=== PATIENT | male | born 1985 | race Caucasian/White ===

== ENCOUNTER 2016-12-08 05:54 | Inpatient (IN) | payer BC ==
[~2016-12-08] VITALS: Ht 185.4 cm; Wt 109.1 kg
[2016-12-08] VITALS (9 sets, daily range): BP systolic 129–158; BP diastolic 71–99; PULSE 74–89; RESP 16–20; TEMP 98–100; O2SAT 95–99
[2016-12-08] MEDS ORDERED: SODIUM CHLOR 0.9% 1000 ML INJ 1,000 ML IV SCH (06:13)
[2016-12-08 06:15] LABS: MEAN CORPUSCULAR HGB CONC 36.9 % (32.0-36.0)
[2016-12-08] MEDS ORDERED: HYDROmorphone HCL PF 1 MG/ML VIAL IVS ONE (06:15)
[2016-12-08] MEDS ORDERED: ONDANSETRON HCL 4 MG/2 ML VIAL IVP ONE (06:15)
[2016-12-08] MEDS ORDERED: LIDOCAINE VISCOUS 2% SOLN 15 ML UDC PO ONE (06:15)
[2016-12-08] MEDS ORDERED: DIATRIZOATE MEGLUM/DIATRIZOATE SOD 9 ML CUP ONE (06:30)
--- NOTE | 2016-12-08 06:41 | PD ---
HPI Chief Complaint: Chest Pain Time Seen by Provider: 06:13 Travel History International Travel<30 days: No Contact w/Intl Traveler<30days: No Traveled to known affect area: No History of Present Illness HPI The patient is 31 years old. Last night while watching the [employer] he ate a couple microwaved dinners. This morning he woke up with epigastric abdominal pain, quite severe. It's constant. He reports a gas-like pain throughout the abdomen. He reports one bowel movement. He denies flatus. Nausea present without vomiting. No fever. No sick contacts. No dyspnea. PFSH Past Medical History Anxiety: Yes Cerebrovascular Accident: No Diabetes: No Respiratory: Yes (ASTHMA) Immunizations Current: Yes Myocardial Infarction: No Past Surgical History Tonsillectomy: Yes Social History Alcohol Use: Yes Tobacco Use: No (quit) Substance Use: No Allergies-Medications (Allergen,Severity, Reaction): Coded Allergies: No Known Allergies (Verified , 12/08/16) Reported Meds & Prescriptions Reported Meds & Active Scripts Active No Active Prescriptions or Reported Medications Review of Systems Except as stated in HPI: all other systems reviewed are Neg Physical Exam Narrative GENERAL: 31 yo M, moderate distress, WNWD SKIN: Diaphoresis. Intact. HEAD: Atraumatic. Normocephalic. EYES: Pupils equal and round. No scleral icterus. No injection or drainage. ENT: No nasal bleeding or discharge. Mucous membranes pink and moist. NECK: Trachea midline. No JVD. CARDIOVASCULAR: Regular rate and rhythm. RESPIRATORY: No accessory muscle use. Clear to auscultation. Breath sounds equal bilaterally. GASTROINTESTINAL: TTP epigastrium. Soft. MUSCULOSKELETAL: Extremities without clubbing, cyanosis, or edema. No obvious deformities. NEUROLOGICAL: Awake and alert. No obvious cranial nerve deficits. Motor grossly within normal limits. Five out of 5 muscle strength in the arms and legs. Normal speech. PSYCHIATRIC: Appropriate mood and affect; insight and judgment normal. Data Data Last Documented VS Vital Signs Date Time Temp Pulse Resp B/P Pulse Ox O2 Delivery O2 Flow Rate FiO2 12/08/16 06:17 77 16 95 Room Air 12/08/16 05:55 98.0 143/88 VS reviewed Orders Complete Blood Count With Diff (12/08/16 06:13) Comprehensive Metabolic Panel (12/08/16 06:13) Lipase (12/08/16 06:13) Lactic Acid (12/08/16 06:13) Ct Abd/Pel W Iv Contrast(Rout) (12/08/16 06:13) Iv Access Insert/Monitor (12/08/16 06:13) Ecg Monitoring (12/08/16 06:13) Oximetry (12/08/16 06:13) Ondansetron Inj (Zofran Inj) (12/08/16 06:15) Sodium Chlor 0.9% 1000 Ml Inj (Ns 1000 M (12/08/16 06:13) Sodium Chloride 0.9% Flush (Ns Flush) (12/08/16 06:15) Hydromorphone Pf Inj (Dilaudid Pf Inj) (12/08/16 06:15) Lidocaine 2% Viscous (Xylocaine 2% Visco (12/08/16 06:15) Oral Contrast - Adult (12/08/16 06:17) Diatrizoate Liq ( Gastroview Liq) (12/08/16 06:30) MDM Medical Decision Making Medical Screen Exam Complete: Yes Emergency Medical Condition: Yes Medical Record Reviewed: Yes Differential Diagnosis Constipation, Gastritis, Acute Cholecystitis, Biliary Colic, Pancreatitis, SALINAS , Hepatitis, Bowel Obstruction, Cystitis, Mesenteric Ischemia, AAA, Appendicitis , Renal Stone/Hydronephrosis, GERD, perforated viscous Narrative Course Oncoming provider going to follow up blood work and imaging. GI cocktail, IVF 1L NS, zofran and dilaudid given upon arrival. Scripts No Active Prescriptions or Reported Meds Jaime Rehman MD Dec 08, 2016 06:41
[2016-12-08 06:43] LABS: AUTOMATED NEUTROPHIL # 5.8 TH/MM3 (1.8-7.7); BASOPHIL # 0.1 TH/MM3 (0-0.2); BASOPHIL % 0.8 % (0.0-2.0); EOSINOPHIL # 0.2 TH/MM3 (0-0.4); EOSINOPHIL % 2.2 % (0.0-4.0); HEMATOCRIT 43.1 % (39.0-51.0); LYMPH % 28.7 % (9.0-44.0); LYMPHOCYTE # 2.9 TH/MM3 (1.0-4.8); MEAN CELL VOLUME 86.7 FL (80.0-100.0); MONO % 10.3 % (0.0-8.0); PLATELET COUNT 273 TH/MM3 (150-450); RED BLOOD COUNT 4.97 MIL/MM3 (4.50-5.90)
[2016-12-08 06:49] LABS: HEMO FLAGS AUTO DIFF
[2016-12-08] MEDS ORDERED: HYDROmorphone HCL PF 1 MG/ML VIAL IV PUSH ONE ×3 (07:00→12:45)
[2016-12-08] MEDS ORDERED: PROMETHAZINE INJ 25 MG/ML VIAL IM ONE (07:00)
[2016-12-08 07:02] LABS: ALT (GPT) 119 U/L (12-78); ANION GAP 13 MEQ/L (5-15); AST (GOT) 109 U/L (15-37); BICARBONATE 26.1 MEQ/L (21.0-32.0); BLOOD UREA NITROGEN 9 MG/DL (7-18); CHLORIDE 99 MEQ/L (98-107); GLOMERULAR FILTRATION RATE 85 ML/MIN (>89); POTASSIUM 3.4 MEQ/L (3.5-5.1); SODIUM (NA) 138 MEQ/L (136-145)
[2016-12-08 07:04] LABS: ALKALINE PHOSPHATASE 106 U/L (45-117); TOTAL BILIRUBIN ADULT 0.6 MG/DL (0.2-1.0)
[2016-12-08 07:38] LABS: SCAN/DIFF AUTO DIFF CONFIRMED
[2016-12-08] MEDS ORDERED: IOHEXOL 350 MG/ML 10 ML VIAL (for RAD DIAG) IV ONE (08:17)
--- NOTE | 2016-12-08 09:12 | RADRPT ---
EXAM DATE/TIME: 12/08/2016 08:08 [place] COMPARISON: No previous studies available for comparison. INDICATIONS: Medial abdominal pain and sweating. IV CONTRAST: 85 cc Omnipaque 350 (iohexol) IV ORAL CONTRAST: Prescribed oral contrast ingested. RADIATION DOSE: 10.29 CTDIvol (mGy) MEDICAL HISTORY: None SURGICAL HISTORY: Tonsillectomy. ENCOUNTER: Initial ACUITY: 1 day PAIN SCALE: 6/10 LOCATION: Medial abdomen TECHNIQUE: Volumetric scanning of the abdomen and pelvis was performed. Using automated exposure control and ad justment of the mA and/or kV according to patient size, radiation dose was kept as low as reasonably achievable to obtain optimal diagnostic quality images. FINDINGS: Lung bases are clear. There is mild fatty replacement to the liver. Spleen is unremarkable. There is peripancreatic induration with fluid in the lesser sac and induration in the mesentery all s uspicious for acute pancreatitis. There is symmetrical renal function. Gallstones are not identified. Common duct is normal. There is no intrahepatic ductal dilatation. Pelvic contents unremarkable. CONCLUSION: 1. Findings could be consistent with acute pancreatitis by CT scan. 2. There is no intrahepatic biliary duct dilatation. There is no gallstones. Brandan Dia MD FACR on December 08, 2016 at 8:51 Board Certified Radiologist. This report was verified electronically.
--- NOTE | 2016-12-08 09:20 | PD ---
Physical Exam Date Seen by Provider: Dec 08, 2016 Time Seen by Provider: 07:00 Narrative Patient seen and initially evaluated by Dr. Rehman, signed out to me at 7 AM awaiting lab work and CAT scan. Patient is requiring several doses of pain medication while in the ER. Vital signs are stable. Laboratory Tests Test 12/08/16 06:20 Mean Corpuscular Hemoglobin 36.9 % Concent (32.0-36.0) Monocytes (%) (Auto) 10.3 % (0.0-8.0) Monocytes # (Auto) 1.0 TH/MM3 (0-0.9) Potassium Level 3.4 MEQ/L (3.5-5.1) Estimat Glomerular Filtration 85 ML/MIN (>89) Rate Random Glucose 145 MG/DL (74-106) Lactic Acid Level 2.1 mmol/L (0.4-2.0) Aspartate Amino Transf 109 U/L (15-37) (AST/SGOT) Alanine Aminotransferase 119 U/L (12-78) (ALT/SGPT) Lipase 2340 U/L (73-393) Lab work indicative of pancreatitis. CT was discussed with Dr. Dia, who states that it looked like the patient has significant pancreatitis. Patient had received IV fluids in the ER, anti-medics, and several doses of pain medications. Vital signs are stable in the ER. And at this point, my plan would be to admit the patient for further treatment of pancreatitis. The case was discussed with Dr. Graham for admission. Data Data Last Documented VS Vital Signs Date Time Temp Pulse Resp B/P Pulse Ox O2 Delivery O2 Flow Rate FiO2 12/08/16 06:17 77 16 95 Room Air 12/08/16 05:55 98.0 143/88 Orders Complete Blood Count With Diff (12/08/16 06:13) Comprehensive Metabolic Panel (12/08/16 06:13) Lipase (12/08/16 06:13) Lactic Acid (12/08/16 06:13) Ct Abd/Pel W Iv Contrast(Rout) (12/08/16 06:13) Iv Access Insert/Monitor (12/08/16 06:13) Ecg Monitoring (12/08/16 06:13) Oximetry (12/08/16 06:13) Ondansetron Inj (Zofran Inj) (12/08/16 06:15) Sodium Chlor 0.9% 1000 Ml Inj (Ns 1000 M (12/08/16 06:13) Sodium Chloride 0.9% Flush (Ns Flush) (12/08/16 06:15) Hydromorphone Pf Inj (Dilaudid Pf Inj) (12/08/16 06:15) Lidocaine 2% Viscous (Xylocaine 2% Visco (12/08/16 06:15) Oral Contrast - Adult (12/08/16 06:17) Diatrizoate Liq ( Gastroview Liq) (12/08/16 06:30) Promethazine Inj (Phenergan Inj) (12/08/16 07:00) Hydromorphone Pf Inj (Dilaudid Pf Inj) (12/08/16 07:00) Hydromorphone Pf Inj (Dilaudid Pf Inj) (12/08/16 08:00) Iohexol 350 Inj (Omnipaque 350 Inj) (12/08/16 08:17) Labs Laboratory Tests Test 12/08/16 06:20 White Blood Count 10.0 TH/MM3 Red Blood Count 4.97 MIL/MM3 Hemoglobin 15.9 GM/DL Hematocrit 43.1 % Mean Corpuscular Volume 86.7 FL Mean Corpuscular Hemoglobin 32.0 PG Mean Corpuscular Hemoglobin 36.9 % Concent Red Cell Distribution Width 13.0 % Platelet Count 273 TH/MM3 Mean Platelet Volume 7.4 FL Neutrophils (%) (Auto) 58.0 % Lymphocytes (%) (Auto) 28.7 % Monocytes (%) (Auto) 10.3 % Eosinophils (%) (Auto) 2.2 % Basophils (%) (Auto) 0.8 % Neutrophils # (Auto) 5.8 TH/MM3 Lymphocytes # (Auto) 2.9 TH/MM3 Monocytes # (Auto) 1.0 TH/MM3 Eosinophils # (Auto) 0.2 TH/MM3 Basophils # (Auto) 0.1 TH/MM3 CBC Comment AUTO DIFF Differential Comment AUTO DIFF CONFIRMED Sodium Level 138 MEQ/L Potassium Level 3.4 MEQ/L Chloride Level 99 MEQ/L Carbon Dioxide Level 26.1 MEQ/L Anion Gap 13 MEQ/L Blood Urea Nitrogen 9 MG/DL Creatinine 1.03 MG/DL Estimat Glomerular Filtration 85 ML/MIN Rate Random Glucose 145 MG/DL Lactic Acid Level 2.1 mmol/L Calcium Level 10.0 MG/DL Total Bilirubin 0.6 MG/DL Aspartate Amino Transf 109 U/L (AST/SGOT) Alanine Aminotransferase 119 U/L (ALT/SGPT) Alkaline Phosphatase 106 U/L Total Protein 7.6 GM/DL Albumin 4.4 GM/DL Lipase 2340 U/L [facility] Medical Record Reviewed: Yes Supervised Visit with NEGRO: No Diagnosis Primary Impression: ALCOHOL INDUCED ACUTE PANCREATITIS WITHOUT NECROSIS OR INFCT Admitting Information Admitting Physician Requests: Admit Scripts No Active Prescriptions or Reported Meds Tyler Gaona MD Dec 08, 2016 09:20
[2016-12-08] MEDS ORDERED: HYDROmorphone HCL PF 1 MG/ML VIAL IV PUSH PRN (09:30)
[2016-12-08] MEDS ORDERED: ACETAMINOPHEN 325 MG TAB PO PRN (09:30)
[2016-12-08] MEDS: NS + KCL 20 MEQ INJ 1,000 ML IV SCH ×3 (11:02→23:12)
[2016-12-08] MEDS: PANTOPRAZOLE SODIUM 40 MG VIAL IV PUSH SCH (11:03)
--- NOTE | 2016-12-08 12:49 | HHI.HP ---
[facility] Primary Care Physician No Primary Care Physician Admission Diagnosis acute pancreatitis Diagnoses: (1) Acute pancreatitis Diagnosis: Principal Chief Complaint: abdominal pain Travel History International Travel<30 Days: No Contact w/Intl Traveler <30 Da: No Traveled to Known Affected Are: No History of Present Illness patient is a 31 y/o male with no significant past medical history , with history of alcohol abuse, presented to ER with abdominal pain. he says that the pain started last night after he drank alcohol. pain was severe in intensity with some radiation to the back. pain was associated with nausea and vomiting. he denies any fever. he doesn't recall any history of this abdominal pain in the past. Review of Systems Constitutional: DENIES: Fever, Weight loss, Chills, Night Sweats Eyes: DENIES: Blurred vision, Diplopia, Vision loss, Double Vision Ears, nose, mouth, throat: DENIES: Tinnitus, Vertigo, Throat pain, Epistaxis Respiratory: DENIES: Apneas, Cough, Snoring, Wheezing, Hemoptysis, Sputum production, Shortness of breath Cardiovascular: DENIES: Chest pain, Palpitations, Syncope, Dyspnea on Exertion , PND, Lower Extremity Edema, Orthopnea, Claudication Gastrointestinal: COMPLAINS OF: Abdominal pain, Nausea, Vomiting, DENIES: Black stools, Bloody stools, Constipation, Diarrhea, Difficulty Swallowing, Anorexia Genitourinary: DENIES: Urinary frequency, Urgency, Hematuria, Dysuria Musculoskeletal: DENIES: Joint pain, Muscle aches, Stiffness, Joint Swelling Integumentary: DENIES: Rash Neurologic: DENIES: Abnormal gait, Headache, Localized weakness, Paresthesias, Seizures, Speech Problems, Tremor, Poor Balance Psychiatric: DENIES: Anxiety, Confusion, Mood changes, Depression, Hallucinations, Agitation, Suicidal Ideation, Homicidal Ideation, Delusions Past Family Social History Past Medical History not significant. Past Surgical History tonsillectomy. Reported Medications none reported. Allergies: Coded Allergies: No Known Allergies (Verified , 12/08/16) Active Ordered Medications Current Medications Ondansetron HCl 4 mg 4 mg ONCE ONCE IVP Last administered on 12/08/16 06:27; Start 12/08/16 at 06:15; Stop 12/08/16 at 06:16; Status DC Sodium Chloride (NS 1000 ml Inj) 1,000 ml @ 1,000 mls/hr Q1H IV Last administered on 12/08/16 06:19; Start 12/08/16 at 06:13; Stop 12/08/16 at 07:12; Status DC IV Flush (NS Flush) 2 ml UNSCH PRN IVF FLUSH AFTER USING IV ACCESS; Start at 06:15 Hydromorphone HCl (Dilaudid Pf Inj) 1 mg ONCE ONCE IVS Last administered on 06:27; Start 12/08/16 at 06:15; Stop 12/08/16 at 06:16; Status DC Lidocaine HCl (Xylocaine 2% Viscous) 15 ml ONCE ONCE PO Last administered on 06:27; Start 12/08/16 at 06:15; Stop 12/08/16 at 06:16; Status DC Diatrizoate Meglum/ Diatrizoate Sod ( Gastroview Liq) 18 ml STK-MED ONCE .ROUTE Last administered on 12/08/16 06:31; Start 12/08/16 at 06:30; Stop at 06:31; Status DC Promethazine HCl (Phenergan Inj) 25 mg ONCE ONCE IM Last administered on 07:08; Start 12/08/16 at 07:00; Stop 12/08/16 at 07:01; Status DC Hydromorphone HCl (Dilaudid Pf Inj) 0.5 mg ONCE ONCE IV PUSH Last administered on 12/08/16 07:08; Start 12/08/16 at 07:00; Stop 12/08/16 at 07:01; Status DC Hydromorphone HCl (Dilaudid Pf Inj) 1 mg ONCE ONCE IV PUSH Last administered on 12/08/16 08:06; Start 12/08/16 at 08:00; Stop 12/08/16 at 08:01; Status DC Iohexol (Omnipaque 350 Inj) 85 ml STK-MED ONCE IV Last administered on 08:17; Start 12/08/16 at 08:17; Stop 12/08/16 at 08:18; Status DC Ondansetron HCl (Zofran Inj) 4 mg Q8H PRN IV PUSH NAUSEA; Start 12/08/16 at 09: 30 Acetaminophen (Tylenol) 650 mg Q4H PRN PO FEVER; Start 12/08/16 at 09:30 Pantoprazole Sodium (Protonix Inj) 40 mg Q24H IV PUSH Last administered on 11:03; Start 12/08/16 at 10:00 Hydromorphone HCl 1 mg 1 mg Q4H PRN IV PUSH PAIN Last administered on 12/08/16 12:25; Start 12/08/16 at 09:30 Potassium Chloride/Sodium Chloride (NS + KCl 20 Meq Inj) 1,000 ml @ 125 mls/hr Q8H IV Last administered on 12/08/16 11:02; Start 12/08/16 at 09:45 Family History breast cancer in mother. Social History quit smoking three weeks ago. drinks five days a week. Physical Exam Vital Signs Vital Signs Date Time Temp Pulse Resp B/P Pulse Ox O2 Delivery O2 Flow Rate FiO2 12/08/16 08:36 18 12/08/16 07:38 16 12/08/16 07:00 18 12/08/16 06:17 77 16 95 Room Air 12/08/16 06:09 77 16 98 Room Air 12/08/16 05:55 98.0 80 20 143/88 96 Physical Exam GENERAL: This is a well-nourished, well-developed patient, in no apparent distress. SKIN: No rashes, ecchymoses or lesions. Cool and dry. HEAD: Atraumatic. Normocephalic. No temporal or scalp tenderness. EYES: Pupils equal round and reactive. Extraocular motions intact. No scleral icterus. No injection or drainage. ENT: Nose without bleeding, purulent drainage or septal hematoma. Throat without erythema, tonsillar hypertrophy or exudate. Uvula midline. Airway patent. NECK: Trachea midline. No JVD or lymphadenopathy. Supple, nontender, no meningeal signs. CARDIOVASCULAR: Regular rate and rhythm without murmurs, gallops, or rubs. RESPIRATORY: Clear to auscultation. Breath sounds equal bilaterally. No wheezes , rales, or rhonchi. GASTROINTESTINAL: Abdomen soft,with generalized tenderness, nondistended. No hepato-splenomegaly, or palpable masses. No guarding. MUSCULOSKELETAL: Extremities without clubbing, cyanosis, or edema. No joint tenderness, effusion, or edema noted. No calf tenderness. Negative Homans sign bilaterally. NEUROLOGICAL: Awake and alert. Cranial nerves II through XII intact. Motor and sensory grossly within normal limits. Five out of 5 muscle strength in all muscle groups. Normal speech. Laboratory Laboratory Tests Test 12/08/16 06:20 White Blood Count 10.0 Red Blood Count 4.97 Hemoglobin 15.9 Hematocrit 43.1 Mean Corpuscular Volume 86.7 Mean Corpuscular Hemoglobin 32.0 Mean Corpuscular Hemoglobin 36.9 Concent Red Cell Distribution Width 13.0 Platelet Count 273 Mean Platelet Volume 7.4 Neutrophils (%) (Auto) 58.0 Lymphocytes (%) (Auto) 28.7 Monocytes (%) (Auto) 10.3 Eosinophils (%) (Auto) 2.2 Basophils (%) (Auto) 0.8 Neutrophils # (Auto) 5.8 Lymphocytes # (Auto) 2.9 Monocytes # (Auto) 1.0 Eosinophils # (Auto) 0.2 Basophils # (Auto) 0.1 CBC Comment AUTO DIFF Differential Comment AUTO DIFF CONFIRMED Sodium Level 138 Potassium Level 3.4 Chloride Level 99 Carbon Dioxide Level 26.1 Anion Gap 13 Blood Urea Nitrogen 9 Creatinine 1.03 Estimat Glomerular Filtration 85 Rate Random Glucose 145 Lactic Acid Level 2.1 Calcium Level 10.0 Total Bilirubin 0.6 Aspartate Amino Transf 109 (AST/SGOT) Alanine Aminotransferase 119 (ALT/SGPT) Alkaline Phosphatase 106 Total Protein 7.6 Albumin 4.4 Lipase 2340 Result Diagram: 12/08/1661912/08/[address] of the abdomen with acute pancreatitis. Assessment and Plan Assessment and Plan A/P - acute pancreatitis- alcohol-induced NPO for now- start IV fluid- pain control and antiemetics as needed check the lipase in am -alcohol abuse; counselled on drinking cessation- start Thiamine- ativan as needed -elevated LFT's due to alcohol- will monitor Discussed Condition With ER physician and the patient. Physician Certification 2 Midnight Certification Type: Admission for Inpatient Services Order for Inpatient Services The services are ordered in accordance with Medicare regulations or non- Medicare payer requirements, as applicable. In the case of services not specified as inpatient-only, they are appropriately provided as inpatient services in accordance with the 2-midnight benchmark. Estimated LOS (days): 2 days is the estimated time the patient will need to remain in the hospital, assuming treatment plan goals are met and no additional complications. Post-Hospital Plan: Home Problem Qualifiers (1) Acute pancreatitis: Deion Broussard MD Dec 08, 2016 12:49
[2016-12-08] MEDS: ONDANSETRON HCL 4 MG/2 ML VIAL IV PUSH PRN (16:44)
[2016-12-08] MEDS: HYDROmorphone HCL PF 1 MG/ML VIAL IV PUSH PRN ×3 (16:44→23:10)
[2016-12-08] MEDS: SODIUM CHLORIDE 0.9% FLUSH 5 ML FLUSH IVF PRN ×2 (19:50→21:43)
[2016-12-08] MEDS ORDERED: MORPHINE SULFATE 4 MG/ML INJ IV PUSH ONE (21:15)
[2016-12-09] VITALS: BP 167/81; PULSE 92; RESP 18; TEMP 99.2; O2SAT 95
[2016-12-09] MEDS: ONDANSETRON HCL 4 MG/2 ML VIAL IV PUSH PRN (00:50)
[2016-12-09] MEDS: HYDROmorphone HCL PF 1 MG/ML VIAL IV PUSH PRN ×8 (01:52→23:21)
[2016-12-09 04:00] VITALS: BP 168/100; PULSE 102; RESP 18; TEMP 98.9; O2SAT 92
[2016-12-09 06:59] LABS: ALKALINE PHOSPHATASE 80 U/L (45-117); ALT (GPT) 74 U/L (12-78); ANION GAP 10 MEQ/L (5-15); AST (GOT) 46 U/L (15-37); BICARBONATE 24.3 MEQ/L (21.0-32.0); BLOOD UREA NITROGEN 15 MG/DL (7-18); CHLORIDE 101 MEQ/L (98-107); GLOMERULAR FILTRATION RATE 94 ML/MIN (>89); POTASSIUM 4.3 MEQ/L (3.5-5.1); SODIUM (NA) 135 MEQ/L (136-145); TOTAL BILIRUBIN ADULT 0.8 MG/DL (0.2-1.0)
[2016-12-09 08:01] VITALS: BP 156/94; PULSE 112; RESP 24; TEMP 98.6; O2SAT 95
[2016-12-09] MEDS: NS + KCL 20 MEQ INJ 1,000 ML IV SCH ×2 (08:08→15:29)
--- NOTE | 2016-12-09 11:04 | HHI.PR ---
Subjective Remarks overall looks more comfortable. abdominal pain has improved. had low grade fever last night. no nausea or vomiting. Objective Vitals Vital Signs Date Time Temp Pulse Resp B/P Pulse Ox O2 Delivery O2 Flow Rate FiO2 12/09/16 08:01 98.6 112 24 156/94 95 12/09/16 04:00 98.9 102 18 168/100 92 12/09/16 00:00 99.2 92 18 167/81 95 12/09/16 00:00 Room Air 12/08/16 21:19 100.0 89 20 158/99 95 12/08/16 21:19 Room Air 12/08/16 21:12 80 24 141/80 100 12/08/16 19:49 84 20 141/80 96 Room Air 12/08/16 17:20 74 16 129/75 98 12/08/16 17:16 16 12/08/16 14:10 75 18 139/71 99 Room Air 12/08/16 13:14 16 12/08/16 11:15 74 18 137/72 99 Room Air I/O 12/08/16 12/08/16 12/08/16 12/09/16 12/09/16 12/09/16 07:00 15:00 23:00 07:00 15:00 23:00 Intake Total 0 ml 0 ml Output Total 175 ml Balance 0 ml -175 ml Intake Oral 0 ml 0 ml Output Urine Total 175 ml # Voids 1 2 # Bowel Movements 2 0 Result Diagram: 12/08/16 0620 12/09/16 0550 Imaging Last Impressions Abdomen/Pelvis CT 12/08/16 0613 Signed Impressions: Service Date/Time: Thursday, December 08, 2016 08:08 - CONCLUSION: 1. Findings could be consistent with acute pancreatitis by CT scan. 2. There is no intrahepatic biliary duct dilatation. There is no gallstones. Brandan Dia MD FACR Objective Remarks GENERAL: This is a well-nourished, well-developed patient, in no apparent distress. CARDIOVASCULAR: Regular rate and regular rhythm without murmurs, gallops, or rubs. RESPIRATORY: Clear to auscultation. Breath sounds equal bilaterally. No wheezes , rales, or rhonchi. GASTROINTESTINAL: Abdomen soft, abdominal tenderness is better, nondistended. Normal, active bowel sounds MUSCULOSKELETAL: Extremities without clubbing, cyanosis, or edema. NEURO: Alert & Oriented x4 to person, place, time, situation. Moves all ext x4 Procedures none Medications and IVs Current Medications Ondansetron HCl 4 mg 4 mg ONCE ONCE IVP Last administered on 12/08/16 06:27; Start 12/08/16 at 06:15; Stop 12/08/16 at 06:16; Status DC Sodium Chloride (NS 1000 ml Inj) 1,000 ml @ 1,000 mls/hr Q1H IV Last administered on 12/08/16 06:19; Start 12/08/16 at 06:13; Stop 12/08/16 at 07:12; Status DC IV Flush (NS Flush) 2 ml UNSCH PRN IVF FLUSH AFTER USING IV ACCESS Last administered on 12/08/16 21:43; Start 12/08/16 at 06:15 Hydromorphone HCl (Dilaudid Pf Inj) 1 mg ONCE ONCE IVS Last administered on 06:27; Start 12/08/16 at 06:15; Stop 12/08/16 at 06:16; Status DC Lidocaine HCl (Xylocaine 2% Viscous) 15 ml ONCE ONCE PO Last administered on 06:27; Start 12/08/16 at 06:15; Stop 12/08/16 at 06:16; Status DC Diatrizoate Meglum/ Diatrizoate Sod ( Gastroview Liq) 18 ml STK-MED ONCE .ROUTE Last administered on 12/08/16 06:31; Start 12/08/16 at 06:30; Stop at 06:31; Status DC Promethazine HCl (Phenergan Inj) 25 mg ONCE ONCE IM Last administered on 07:08; Start 12/08/16 at 07:00; Stop 12/08/16 at 07:01; Status DC Hydromorphone HCl (Dilaudid Pf Inj) 0.5 mg ONCE ONCE IV PUSH Last administered on 12/08/16 07:08; Start 12/08/16 at 07:00; Stop 12/08/16 at 07:01; Status DC Hydromorphone HCl (Dilaudid Pf Inj) 1 mg ONCE ONCE IV PUSH Last administered on 12/08/16 08:06; Start 12/08/16 at 08:00; Stop 12/08/16 at 08:01; Status DC Iohexol (Omnipaque 350 Inj) 85 ml STK-MED ONCE IV Last administered on 08:17; Start 12/08/16 at 08:17; Stop 12/08/16 at 08:18; Status DC Ondansetron HCl (Zofran Inj) 4 mg Q8H PRN IV PUSH NAUSEA Last administered on 00:50; Start 12/08/16 at 09:30 Acetaminophen (Tylenol) 650 mg Q4H PRN PO FEVER; Start 12/08/16 at 09:30 Pantoprazole Sodium (Protonix Inj) 40 mg Q24H IV PUSH Last administered on 11:03; Start 12/08/16 at 10:00 Hydromorphone HCl 1 mg 1 mg Q4H PRN IV PUSH PAIN Last administered on 12/08/16 12:25; Start 12/08/16 at 09:30; Stop 12/08/16 at 15:00; Status DC Potassium Chloride/Sodium Chloride (NS + KCl 20 Meq Inj) 1,000 ml @ 125 mls/hr Q8H IV Last administered on 12/09/16 08:08; Start 12/08/16 at 09:45 Hydromorphone HCl (Dilaudid Pf Inj) 1 mg Q3HR PRN IV PUSH PAIN Last administered on 12/09/16 08:09; Start 12/08/16 at 15:00 Hydromorphone HCl (Dilaudid Pf Inj) 0.5 mg ONCE ONCE IV PUSH Last administered on 12/08/16 13:17; Start 12/08/16 at 12:45; Stop 12/08/16 at 12:46; Status DC Morphine Sulfate (Morphine Inj) 4 mg ONCE ONCE IV PUSH Last administered on 21:43; Start 12/08/16 at 21:15; Stop 12/08/16 at 21:21; Status DC A/P Assessment and Plan - acute pancreatitis- alcohol-induced NPO for now- continue IV fluid- pain control and antiemetics as needed check the lipase in am- will advance the diet in am if pain continues to improve. -alcohol abuse; counselled on drinking cessation- start Thiamine- ativan as needed -elevated LFT's due to alcohol- improving- will monitor Deion Broussard MD Dec 09, 2016 11:04
[2016-12-09] MEDS ORDERED: LORazepam 2 MG/ML VIAL IV PUSH PRN (11:15)
[2016-12-09] MEDS: PANTOPRAZOLE SODIUM 40 MG VIAL IV PUSH SCH (11:20)
[2016-12-09 12:01] VITALS: BP 155/93; PULSE 99; RESP 22; TEMP 98.1; O2SAT 95
[2016-12-09] MEDS: THIAMINE INJ 100 MG in SODIUM CHLORIDE 0.9% INJ 100 ML IV SCH (15:28)
[2016-12-09 16:01] VITALS: BP 133/79; PULSE 99; RESP 22; TEMP 97.9; O2SAT 96
[2016-12-09 20:00] VITALS: BP 126/87; PULSE 106; RESP 18; TEMP 99.8; O2SAT 94
[2016-12-10] VITALS (7 sets, daily range): BP systolic 106–166; BP diastolic 66–88; PULSE 94–115; RESP 16–20; TEMP 98.1–99.4; O2SAT 92–95
[2016-12-10] MEDS: NS + KCL 20 MEQ INJ 1,000 ML IV SCH ×2 (01:03→08:26)
[2016-12-10] MEDS: HYDROmorphone HCL PF 1 MG/ML VIAL IV PUSH PRN ×4 (02:15→11:12)
[2016-12-10] MEDS: THIAMINE INJ 100 MG in SODIUM CHLORIDE 0.9% INJ 100 ML IV SCH (08:14)
[2016-12-10] MEDS: PANTOPRAZOLE SODIUM 40 MG VIAL IV PUSH SCH (08:26)
--- NOTE | 2016-12-10 11:18 | HHI.PR ---
Subjective Remarks abdominal pain is better. no fever. no nausea or vomiting. wants to try some liquids today. d/w the RN. Objective Vitals Vital Signs Date Time Temp Pulse Resp B/P Pulse Ox O2 Delivery O2 Flow Rate FiO2 12/10/16 08:01 98.1 115 20 162/88 92 12/10/16 04:00 98.1 99 18 106/67 95 12/10/16 00:00 98.4 114 18 139/66 92 12/09/16 20:35 Room Air 12/09/16 20:00 99.8 106 18 126/87 94 12/09/16 16:01 97.9 99 22 133/79 96 12/09/16 14:44 20 12/09/16 12:01 98.1 99 22 155/93 95 I/O 12/09/16 12/09/16 12/09/16 12/10/16 12/10/16 12/10/16 07:00 15:00 23:00 07:00 15:00 23:00 Intake Total 0 ml 0 ml 0 ml 0 ml Output Total 175 ml 300 ml 200 ml Balance -175 ml -300 ml 0 ml -200 ml Intake Oral 0 ml 0 ml 0 ml 0 ml Output Urine Total 175 ml 300 ml 200 ml # Voids 3 2 # Bowel Movements 0 0 1 1 Result Diagram: 12/08/16 0620 12/09/16 0550 Imaging Last Impressions Abdomen/Pelvis CT 12/08/16 0613 Signed Impressions: Service Date/Time: Thursday, December 08, 2016 08:08 - CONCLUSION: 1. Findings could be consistent with acute pancreatitis by CT scan. 2. There is no intrahepatic biliary duct dilatation. There is no gallstones. Brandan Dia MD FACR Objective Remarks GENERAL: This is a well-nourished, well-developed patient, in no apparent distress. CARDIOVASCULAR: Regular rate and regular rhythm without murmurs, gallops, or rubs. RESPIRATORY: Clear to auscultation. Breath sounds equal bilaterally. No wheezes , rales, or rhonchi. GASTROINTESTINAL: Abdomen soft, abdominal tenderness is better, nondistended. Normal, active bowel sounds MUSCULOSKELETAL: Extremities without clubbing, cyanosis, or edema. NEURO: Alert & Oriented x4 to person, place, time, situation. Moves all ext x4 Procedures none Medications and IVs Current Medications Ondansetron HCl 4 mg 4 mg ONCE ONCE IVP Last administered on 12/08/16 06:27; Start 12/08/16 at 06:15; Stop 12/08/16 at 06:16; Status DC Sodium Chloride (NS 1000 ml Inj) 1,000 ml @ 1,000 mls/hr Q1H IV Last administered on 12/08/16 06:19; Start 12/08/16 at 06:13; Stop 12/08/16 at 07:12; Status DC IV Flush (NS Flush) 2 ml UNSCH PRN IVF FLUSH AFTER USING IV ACCESS Last administered on 12/08/16 21:43; Start 12/08/16 at 06:15 Hydromorphone HCl (Dilaudid Pf Inj) 1 mg ONCE ONCE IVS Last administered on 06:27; Start 12/08/16 at 06:15; Stop 12/08/16 at 06:16; Status DC Lidocaine HCl (Xylocaine 2% Viscous) 15 ml ONCE ONCE PO Last administered on 06:27; Start 12/08/16 at 06:15; Stop 12/08/16 at 06:16; Status DC Diatrizoate Meglum/ Diatrizoate Sod ( Gastroview Liq) 18 ml STK-MED ONCE .ROUTE Last administered on 12/08/16 06:31; Start 12/08/16 at 06:30; Stop at 06:31; Status DC Promethazine HCl (Phenergan Inj) 25 mg ONCE ONCE IM Last administered on 07:08; Start 12/08/16 at 07:00; Stop 12/08/16 at 07:01; Status DC Hydromorphone HCl (Dilaudid Pf Inj) 0.5 mg ONCE ONCE IV PUSH Last administered on 12/08/16 07:08; Start 12/08/16 at 07:00; Stop 12/08/16 at 07:01; Status DC Hydromorphone HCl (Dilaudid Pf Inj) 1 mg ONCE ONCE IV PUSH Last administered on 12/08/16 08:06; Start 12/08/16 at 08:00; Stop 12/08/16 at 08:01; Status DC Iohexol (Omnipaque 350 Inj) 85 ml STK-MED ONCE IV Last administered on 08:17; Start 12/08/16 at 08:17; Stop 12/08/16 at 08:18; Status DC Ondansetron HCl (Zofran Inj) 4 mg Q8H PRN IV PUSH NAUSEA Last administered on 00:50; Start 12/08/16 at 09:30 Acetaminophen (Tylenol) 650 mg Q4H PRN PO FEVER; Start 12/08/16 at 09:30 Pantoprazole Sodium (Protonix Inj) 40 mg Q24H IV PUSH Last administered on 08:26; Start 12/08/16 at 10:00 Hydromorphone HCl 1 mg 1 mg Q4H PRN IV PUSH PAIN Last administered on 12/08/16 12:25; Start 12/08/16 at 09:30; Stop 12/08/16 at 15:00; Status DC Potassium Chloride/Sodium Chloride (NS + KCl 20 Meq Inj) 1,000 ml @ 125 mls/hr Q8H IV Last administered on 12/10/16 08:26; Start 12/08/16 at 09:45 Hydromorphone HCl (Dilaudid Pf Inj) 1 mg Q3HR PRN IV PUSH PAIN Last administered on 12/10/16 11:12; Start 12/08/16 at 15:00 Hydromorphone HCl (Dilaudid Pf Inj) 0.5 mg ONCE ONCE IV PUSH Last administered on 12/08/16 13:17; Start 12/08/16 at 12:45; Stop 12/08/16 at 12:46; Status DC Morphine Sulfate 4 mg 4 mg ONCE ONCE IV PUSH Last administered on 12/08/16 21: 43; Start 12/08/16 at 21:15; Stop 12/08/16 at 21:21; Status DC Thiamine HCl/ Sodium Chloride (Thiamine Inj/NS Inj) 101 ml @ 101 mls/hr DAILY IV Last administered on 12/10/16 08:14; Start 12/09/16 at 12:00 Lorazepam (Ativan Inj) 1 mg Q4H PRN IV PUSH ANXIETY Last administered on 15:28; Start 2/7/17 at 11:15 A/P Assessment and Plan A/P - acute pancreatitis- alcohol-induced- improving start clear liquid diet and advance as tolerated- continue IV fluid- pain control and antiemetics as needed lipase trending down. -alcohol abuse; counselled on drinking cessation- continue Thiamine- ativan as needed -elevated LFT's due to alcohol- improving- will monitor Discharge Planning possible dc home within the next 24-48 hrs if continues to improve and tolerates the diet. Deion Broussard MD Dec 10, 2016 11:18
[2016-12-10] MEDS: SODIUM CHLOR 0.9% 1000 ML INJ 1,000 ML IV SCH ×2 (12:32→22:29)
[2016-12-10] MEDS: ACETAMINOPHEN/HYDROcodone 325 MG/5 MG TAB PO PRN ×3 (14:15→22:30)
[2016-12-11] MEDS: ACETAMINOPHEN/HYDROcodone 325 MG/5 MG TAB PO PRN ×3 (02:58→11:59)
[2016-12-11] MEDS: SODIUM CHLOR 0.9% 1000 ML INJ 1,000 ML IV SCH (04:00)
[2016-12-11 04:40] VITALS: BP 146/81; PULSE 86; RESP 16; TEMP 99.6; O2SAT 92
[2016-12-11 08:00] VITALS: BP 152/84; PULSE 88; RESP 20; TEMP 99.2; O2SAT 94
[2016-12-11] MEDS: THIAMINE INJ 100 MG in SODIUM CHLORIDE 0.9% INJ 100 ML IV SCH (09:00)
[2016-12-11] MEDS: PANTOPRAZOLE SODIUM 40 MG VIAL IV PUSH SCH (10:00)
--- NOTE | 2016-12-11 10:56 | HHI.PR ---
Subjective Remarks resting comfortably. abdominal pain has much improved. no nausea or vomiting. tolerated the liquid diet. Objective Vitals Vital Signs Date Time Temp Pulse Resp B/P Pulse Ox O2 Delivery O2 Flow Rate FiO2 12/11/16 08:00 99.2 88 20 152/84 94 12/11/16 04:40 99.6 86 16 146/81 92 12/11/16 04:40 Room Air 12/10/16 23:05 98.6 94 16 162/72 94 12/10/16 23:05 Room Air 12/10/16 19:37 99.4 99 16 166/73 93 12/10/16 19:37 Room Air 12/10/16 16:00 98.2 101 20 140/80 94 12/10/16 12:00 98.9 103 20 139/80 93 I/O 12/10/16 12/10/16 12/10/16 12/11/16 12/11/16 12/11/16 07:00 15:00 23:00 07:00 15:00 23:00 Intake Total 0 ml 240 ml 1693 ml 1200 ml Output Total 200 ml 625 ml 2000 ml Balance -200 ml 240 ml 1068 ml -800 ml Intake Oral 0 ml 240 ml 540 ml 1200 ml IV Total 1153 ml Output Urine Total 200 ml 625 ml 2000 ml # Voids 2 5 2 # Bowel Movements 1 1 1 0 Result Diagram: 12/08/16 0620 12/09/16 0550 Imaging Last Impressions Abdomen/Pelvis CT 12/08/16 0613 Signed Impressions: Service Date/Time: Thursday, December 08, 2016 08:08 - CONCLUSION: 1. Findings could be consistent with acute pancreatitis by CT scan. 2. There is no intrahepatic biliary duct dilatation. There is no gallstones. Brandan Dia MD FACR Objective Remarks GENERAL: This is a well-nourished, well-developed patient, in no apparent distress. CARDIOVASCULAR: Regular rate and regular rhythm without murmurs, gallops, or rubs. RESPIRATORY: Clear to auscultation. Breath sounds equal bilaterally. No wheezes , rales, or rhonchi. GASTROINTESTINAL: Abdomen soft, abdominal tenderness is better, nondistended. Normal, active bowel sounds MUSCULOSKELETAL: Extremities without clubbing, cyanosis, or edema. NEURO: Alert & Oriented x4 to person, place, time, situation. Moves all ext x4 Procedures none Medications and IVs Current Medications Ondansetron HCl 4 mg 4 mg ONCE ONCE IVP Last administered on 12/08/16 06:27; Start 12/08/16 at 06:15; Stop 12/08/16 at 06:16; Status DC Sodium Chloride (NS 1000 ml Inj) 1,000 ml @ 1,000 mls/hr Q1H IV Last administered on 12/08/16 06:19; Start 12/08/16 at 06:13; Stop 12/08/16 at 07:12; Status DC IV Flush (NS Flush) 2 ml UNSCH PRN IVF FLUSH AFTER USING IV ACCESS Last administered on 12/08/16 21:43; Start 12/08/16 at 06:15 Hydromorphone HCl (Dilaudid Pf Inj) 1 mg ONCE ONCE IVS Last administered on 06:27; Start 12/08/16 at 06:15; Stop 12/08/16 at 06:16; Status DC Lidocaine HCl (Xylocaine 2% Viscous) 15 ml ONCE ONCE PO Last administered on 06:27; Start 12/08/16 at 06:15; Stop 12/08/16 at 06:16; Status DC Diatrizoate Meglum/ Diatrizoate Sod ( Gastroview Liq) 18 ml STK-MED ONCE .ROUTE Last administered on 12/08/16 06:31; Start 12/08/16 at 06:30; Stop at 06:31; Status DC Promethazine HCl (Phenergan Inj) 25 mg ONCE ONCE IM Last administered on 07:08; Start 12/08/16 at 07:00; Stop 12/08/16 at 07:01; Status DC Hydromorphone HCl (Dilaudid Pf Inj) 0.5 mg ONCE ONCE IV PUSH Last administered on 12/08/16 07:08; Start 12/08/16 at 07:00; Stop 12/08/16 at 07:01; Status DC Hydromorphone HCl (Dilaudid Pf Inj) 1 mg ONCE ONCE IV PUSH Last administered on 12/08/16 08:06; Start 12/08/16 at 08:00; Stop 12/08/16 at 08:01; Status DC Iohexol (Omnipaque 350 Inj) 85 ml STK-MED ONCE IV Last administered on 08:17; Start 12/08/16 at 08:17; Stop 12/08/16 at 08:18; Status DC Ondansetron HCl (Zofran Inj) 4 mg Q8H PRN IV PUSH NAUSEA Last administered on 00:50; Start 12/08/16 at 09:30 Acetaminophen (Tylenol) 650 mg Q4H PRN PO FEVER; Start 12/08/16 at 09:30 Pantoprazole Sodium (Protonix Inj) 40 mg Q24H IV PUSH Last administered on 08:26; Start 12/08/16 at 10:00 Hydromorphone HCl 1 mg 1 mg Q4H PRN IV PUSH PAIN Last administered on 12/08/16 12:25; Start 12/08/16 at 09:30; Stop 12/08/16 at 15:00; Status DC Potassium Chloride/Sodium Chloride (NS + KCl 20 Meq Inj) 1,000 ml @ 125 mls/hr Q8H IV Last administered on 12/10/16 08:26; Start 12/08/16 at 09:45; Stop at 11:20; Status DC Hydromorphone HCl (Dilaudid Pf Inj) 1 mg Q3HR PRN IV PUSH BREAKTHROUGH PAIN Last administered on 12/10/16 11:12; Start 12/08/16 at 15:00 Hydromorphone HCl (Dilaudid Pf Inj) 0.5 mg ONCE ONCE IV PUSH Last administered on 12/08/16 13:17; Start 12/08/16 at 12:45; Stop 12/08/16 at 12:46; Status DC Morphine Sulfate 4 mg 4 mg ONCE ONCE IV PUSH Last administered on 12/08/16 21: 43; Start 12/08/16 at 21:15; Stop 12/08/16 at 21:21; Status DC Thiamine HCl/ Sodium Chloride (Thiamine Inj/NS Inj) 101 ml @ 101 mls/hr DAILY IV Last administered on 12/10/16 08:14; Start 12/09/16 at 12:00 Lorazepam (Ativan Inj) 1 mg Q4H PRN IV PUSH ANXIETY Last administered on 15:28; Start 12/09/16 at 11:15 Acetaminophen/ Hydrocodone Bitart ([place] 5-325 Mg) 1 tab Q4H PRN PO PAIN 1-5 Last administered on 12/11/16 07:42; Start 12/10/16 at 11:15 Acetaminophen/ Hydrocodone Bitart 2 tab 2 tab Q4H PRN PO PAIN 6-10 Last administered on 12/11/16 02:58; Start 12/10/16 at 11:15 Sodium Chloride (NS 1000 ml Inj) 1,000 ml @ 125 mls/hr Q8H IV Last administered on 12/11/16 04:00; Start 12/10/16 at 12:00 A/P Assessment and Plan A/P - acute pancreatitis- alcohol-induced- improving advance the diet- pain control and antiemetics as needed lipase trending down. -alcohol abuse; counselled on drinking cessation- -elevated LFT's due to alcohol- improving- will monitor Discharge Planning dc home later today if tolerates the diet. see med list. f/u; pcp. d/w the patient. Deion Broussard MD Dec 11, 2016 10:56
[2016-12-11] MEDS ORDERED: HYDR-3516 PO (10:57)
--- NOTE | 2016-12-11 10:57 | HHI.DCPOC ---
Discharge Care Plan Diagnosis: (1) Acute pancreatitis Additional Problems abdominal pain, nausea/ vomiting. Goals to Promote Your Health * To prevent worsening of your condition and complications * To maintain your health at the optimal level Directions to Meet Your Goals Take your medications as prescribed Follow your dietary instruction Follow activity as directed Keep your appointments as scheduled Take your immunizations and boosters as scheduled If your symptoms worsen call your PCP, if no PCP go to Urgent Care Center or Emergency Room Smoking is Dangerous to Your Health. Avoid second hand smoke Call the 24-hour hour crisis hotline for domestic abuse at Deion Broussard MD Dec 11, 2016 10:57
--- NOTE | 2016-12-11 10:58 | HHI.DS ---
Discharge Summary Admission Date Dec 08, 2016 at 09:18 Discharge Date: Dec 11, 2016 Admitting Diagnosis acute pancreatitis (1) Acute pancreatitis ICD Code: K85.90 Diagnosis: Principal Procedures none Brief History - From Admission patient is a 31 y/o male with no significant past medical history , with history of alcohol abuse, presented to ER with abdominal pain. he says that the pain started last night after he drank alcohol. pain was severe in intensity with some radiation to the back. pain was associated with nausea and vomiting. he denies any fever. he doesn't recall any history of this abdominal pain in the past. CBC/BMP: 12/08/16 0620 12/09/16 0550 Significant Findings Laboratory Tests Test 12/09/16 12/10/16 12/11/16 05:50 08:00 04:45 Sodium Level 135 MEQ/L (136-145) Random Glucose 126 MG/DL (74-106) Calcium Level 8.3 MG/DL (8.5-10.1) Aspartate Amino Transf 46 U/L (15-37) (AST/SGOT) Lipase 3081 U/L 733 U/L 453 U/L (73-393) (73-393) (73-393) Imaging Last Impressions Abdomen/Pelvis CT 12/08/16 0613 Signed Impressions: Service Date/Time: Thursday, December 08, 2016 08:08 - CONCLUSION: 1. Findings could be consistent with acute pancreatitis by CT scan. 2. There is no intrahepatic biliary duct dilatation. There is no gallstones. Brandan Dia MD FACR PE at Discharge GENERAL: This is a well-nourished, well-developed patient, in no apparent distress. CARDIOVASCULAR: Regular rate and regular rhythm without murmurs, gallops, or rubs. RESPIRATORY: Clear to auscultation. Breath sounds equal bilaterally. No wheezes , rales, or rhonchi. GASTROINTESTINAL: Abdomen soft, abdominal tenderness is better, nondistended. Normal, active bowel sounds MUSCULOSKELETAL: Extremities without clubbing, cyanosis, or edema. NEURO: Alert & Oriented x4 to person, place, time, situation. Moves all ext x4 Hospital Course - acute pancreatitis- alcohol-induced- improving advance the diet- pain control and antiemetics as needed lipase trending down. -alcohol abuse; counselled on drinking cessation- -elevated LFT's due to alcohol- improving- will monitor Pt Condition on Discharge: Good Discharge Disposition: Discharge Home Discharge Time: <= 30 minutes Discharge Instructions DIET: Follow Instructions for: Low Fat Diet Activities you can perform: Regular-No Restrictions Follow up Referrals: PCP Follow-up New Medications: Hydrocodone-Acetaminophen (Hydrocodone-Acetaminophen) 5-325 mg Tab 1 TAB PO Q6HR PRN pain #14 Ref 0 TAB Deion Broussard MD Dec 11, 2016 10:58
--- NOTE | 2016-12-11 11:21 | PQ ---
Physician Query Response Document PATIENT: CRISTIAN HARDY : 1985 ADMIT DATE: 12/08/2016 9:18 AM DISCH DATE: RESPONDING PROVIDER #: [email or web address] QUERY TEXT: Substance Use Please clarify the pattern of use and associated manifestations of patient's substance usage. Pattern of use, include all that apply: -- Abuse -- Dependence -- Remission -- Use only -- R/O alcohol abuse The patient's Clinical Indicators include: Upon admission to the ED, ED documentation states patient said last night while watching the [employer] [facility] he ate a couple microwaved dinners. This morning he woke up with epigastric abdominal pain, quite severe. It's constant. He reports a gas-like pain throughout the abdomen. He reports one bowel mo vement. He denies flatus. Nausea present without vomiting. No fever. No sick contacts. No dyspne a. No blood ETOH level found. CT scan showed no signs of alcohol impairment, only suspicion of acute bedoya creatitis. Query created by: Hilaria Palomino on 12/11/2016 10:48 AM RESPONSE TEXT: Use only Electronically signed by: Deion Broussard MD 12/11/2016 11:17 AM
[2016-12-11 12:00] VITALS: BP 144/86; PULSE 90; RESP 20; TEMP 99; O2SAT 95
--- NOTE | 2016-12-11 12:18 | PQ ---
Physician Query Response Document PATIENT: CRISTIAN HARDY : 1985 ADMIT DATE: 12/08/2016 9:18 AM DISCH DATE: RESPONDING PROVIDER #: [email or web address] QUERY TEXT: Clinical Validity Additional clinical indicators are required to support your documented diagnosis of Alcohol Induced Pancreatitis Please respond and also state in your next progress note whether: -- Condition exists and also please provide clinical indicators to support the diagnosis -- Condition does not exist and also please provide amended documentation in the medical record to cl magda -- Unable to provide additional clarity regarding the diagnosis -- Other, please specify The patient's Clinical Indicators include: acute pancreatitis- alcohol-induced- improving advance the diet- pain control and antiemetics as needed lipase trending down. No Blood ETOH levels taken. Acute Pancreatitis Unspecified vs Acute Pancreatitis Alcohol Induced. Query created by: Hilaria Palomino on 12/11/2016 11:43 AM RESPONSE TEXT: Patient presented with abdominal pain due to acute pancreatitis after he drank alcohol night before a dmission. Ct scan with no gallstones. Electronically signed by: Deion Broussard MD 12/11/2016 12:14 PM
== END 2016-12-11 16:37 | disposition home or self-care (01) | DRG 440 ==
LOC: NEPC 05:54 → NEDA 09:18 → NEDH 13:40 → N04A 21:20
PROVIDERS: ADMIT Internal Medicine; ATTEND Internal Medicine
DX: K85.90 Acute pancreatitis without necrosis or infection, unspecified (principal); J45.909 Unspecified asthma, uncomplicated; Z72.89 Other problems related to lifestyle
CPT/HCPCS: 74177; 80053; 83605; 83690; 85025; 96361; 96372; 96374; 96375; 96376; C9113; J1170; J2060; J2270; J2405; J2550; J3411; J3480; J7030; Q9963; Q9967

== ENCOUNTER 2017-02-24 14:02 | Emergency (ER) | payer BC ==
[~2017-02-24] VITALS: Ht 185.4 cm; Wt 98.0 kg
[~2017-02-24 14:02] MED LIST: HYDR-3516 PO
[2017-02-24 14:03] VITALS: BP 173/85; PULSE 73; RESP 16; TEMP 98.2; O2SAT 98
--- NOTE | 2017-02-24 14:10 | PD ---
HPI . cut that won't stop bleeding Chief Complaint: Laceration/Skin Injury Time Seen by Provider: 14:10 Travel History International Travel<30 days: No Contact w/Intl Traveler<30days: No Traveled to known affect area: No History of Present Illness HPI 31-year-old male with no significant past medical history here with complaints of a cut to his left index finger that he sustained yesterday while using scissors. Patient said he accidentally cut his left index finger and it has been bleeding ever since. He said initially the bleeding did stop, but he woke up this morning and noticed there was more blood. He then admits to hitting his finger on the car and it started to bleed again. He decided to come to the emergency department for further evaluation. He also complains of some kind of something in his nose that he thinks may be a fungus. He says he has a weird smell. He denies any recent illnesses or infections. His last tetanus was less than 5 years ago. PFSH Past Medical History Asthma: Yes ("GREW OUT OF IT") Anxiety: Yes Cancer: No Cardiovascular Problems: No Cerebrovascular Accident: No Diabetes: No Endocrine: No Genitourinary: No Immune Disorder: No Musculoskeletal: No Neurologic: No Psychiatric: Yes (OCD, ANXIETY DISORDER) Reproductive: No Respiratory: Yes (ASTHMA) Immunizations Current: Yes Migraines: No Myocardial Infarction: No Seizures: Yes Past Surgical History Abdominal Surgery: No Cardiac Surgery: No Ear Surgery: No Endocrine Surgery: No Eye Surgery: No Genitourinary Surgery: No Gynecologic Surgery: No Oral Surgery: No Thoracic Surgery: No Tonsillectomy: Yes Social History Alcohol Use: Yes Tobacco Use: No (quit) Substance Use: No Allergies-Medications (Allergen,Severity, Reaction): Coded Allergies: No Known Allergies (Verified , 02/24/17) Reported Meds & Prescriptions Reported Meds & Active Scripts Active No Active Prescriptions or Reported Medications Review of Systems General / Constitutional: No: Fever Eyes: No: Visual changes HENT: No: Headaches Cardiovascular: No: Chest Pain or Discomfort Respiratory: No: Shortness of Breath Gastrointestinal: No: Abdominal Pain Genitourinary: No: Dysuria Musculoskeletal: No: Pain Skin: Positive Other (left index finger laceration about 1 cm ), No Rash Neurologic: No: Weakness Psychiatric: No: Depression Endocrine: No: Polydipsia Hematologic/Lymphatic: No: Easy Bruising Physical Exam Narrative GENERAL: AAO x 3, no acute distress, Well-nourished, well-developed patient. SKIN: Warm and dry. No visible rashes or bruising. Index finger with a small approximately 1 cm laceration in the interphalangeal joint between the DIP and the PIP. This laceration is very superficial. Currently the bleeding is under control. There are no other wounds HEAD: Normocephalic and atraumatic. EYES: No scleral icterus. No injection or drainage. ENT: No nasal drainage noted. Mucous membranes pink. Airway patent. Nasal turbinates with clear nasal drainage. I do not visualize any type of possible rash or fungal lesions. NECK: Supple, trachea midline. No JVD. CARDIOVASCULAR: Regular rate and rhythm without murmurs, gallops, or rubs. RESPIRATORY: Breath sounds equal bilaterally. No accessory muscle use. No rhonchi or rales. GASTROINTESTINAL: Visual inspection is normal EXTREMITIES: No cyanosis or edema. BACK: Nontender without obvious deformity. No CVA tenderness. PSYCH: AAO x 3, normal affect. Data Data Last Documented VS Vital Signs Date Time Temp Pulse Resp B/P Pulse Ox O2 Delivery O2 Flow Rate FiO2 02/24/17 14:03 98.2 73 16 173/85 98 Orders Support Splint (02/24/17 14:36) MDM Medical Decision Making Medical Screen Exam Complete: Yes Emergency Medical Condition: Yes Medical Record Reviewed: Yes Differential Diagnosis Index finger laceration, abrasion, less likely hand fracture Narrative Course 31-year-old male with no significant past medical history here with complaints of a cut to his left index finger that he sustained yesterday while using scissors. Patient said he accidentally cut his left index finger and it has been bleeding ever since. He said initially the bleeding did stop, but he woke up this morning and noticed there was more blood. He then admits to hitting his finger on the car and it started to bleed again. He decided to come to the emergency department for further evaluation. He has no other complaints. His last tetanus was less than 5 years ago. Patient seen and examined. He has a very superficial laceration to his left index finger. Repair performed with steri strips and dermabond as this is very superficial. I explained to patient that I do not see any abn within his nasal cavity. Recommend being gentle with usage of the left index finger. Finger splint provided. Discussed signs of infection. Explained that Steri-Strips will fall off by themselves. Patient verbalized understanding of instructions, questions were answered, and thanked me for their care. I advised them if their condition worsens, please return to the nearest emergency room for further care. Procedures Procedure Narrative LACERATION LOCATION: Left index finger LENGTH: Approximately 1 cm NUMBER OF STITCHES/MIMI: Dermabond and Steri-Strips REPAIR: The area of the laceration was prepped with Betadine and sterilely draped. The wound was copiously irrigated and explored without evidence of foreign body, tendon injury or neurovascular injury. The wound was closed using Dermabond and Steri-Strips. This was a single layer repair. A sterile dressing was applied. The patient was advised to keep the dressing clean and dry. Patient tolerated the procedure well. Diagnosis Primary Impression: Finger laceration Qualified Code: S61.219A - Finger laceration, initial encounter Patient Instructions: Acute Wound Care (ED), General Instructions Additional Instructions: Please return to emergency department if your symptoms return or worsen. Follow up with your primary care provider. If you develop any worsening of this cut, return to the emergency department. As we discussed please keep a dressing over it and tried to be gentle with it. The steri strips will fall off in a few days and the cut should be completely healed. Med/Other Pt SpecificInfo: No Change to Meds Scripts No Active Prescriptions or Reported Meds Disposition: 01 DISCHARGE HOME Condition: Stable Cecile Lee Feb 24, 2017 14:10
== END 2017-02-24 14:46 | disposition home or self-care (01) ==
LOC: NEPK 14:02
DX: S61.211A Laceration without foreign body of left index finger without damage to nail, initial encounter (principal); W27.2XXA Contact with scissors, initial encounter
CPT/HCPCS: 12001

== ENCOUNTER 2017-07-31 21:46 | Emergency (ER) | payer BC ==
[2017-07-31 21:52] VITALS: BP 163/83; PULSE 81; RESP 16; TEMP 98.6; O2SAT 100
[2017-07-31] MEDS ORDERED: SODIUM CHLOR 0.9% 1000 ML INJ 1,000 ML IV SCH (23:46)
[2017-08-01] MEDS ORDERED: HYDROmorphone HCL PF 1 MG/ML VIAL IVS ONE
[2017-08-01] MEDS ORDERED: SODIUM CHLORIDE 0.9% FLUSH 10 ML FLUSH IV FLUSH PRN
[2017-08-01 00:49] LABS: AUTOMATED NEUTROPHIL # 4.2 TH/MM3 (1.8-7.7); BASOPHIL % 0.3 % (0.0-2.0); EOSINOPHIL # 0.2 TH/MM3 (0-0.4); HEMATOCRIT 44.8 % (39.0-51.0); HEMO FLAGS DIFF FINAL; LYMPH % 22.9 % (9.0-44.0); LYMPHOCYTE # 1.5 TH/MM3 (1.0-4.8); MEAN CELL VOLUME 87.6 FL (80.0-100.0); MEAN CORPUSCULAR HEMOGLOBIN 30.2 PG (27.0-34.0); MEAN CORPUSCULAR HGB CONC 34.5 % (32.0-36.0); MONO % 8.1 % (0.0-8.0); NEUT % 65.7 % (16.0-70.0); PLATELET COUNT 180 TH/MM3 (150-450); RED BLOOD COUNT 5.12 MIL/MM3 (4.50-5.90); RED CELL DISTRIBUTION WIDTH 13.7 % (11.6-17.2); WHITE BLOOD COUNT 6.4 TH/MM3 (4.0-11.0)
[2017-08-01 01:11] LABS: ALT (GPT) 188 U/L (12-78); ANION GAP 9 MEQ/L (5-15); AST (GOT) 125 U/L (15-37); BICARBONATE 26.1 MEQ/L (21.0-32.0); BLOOD UREA NITROGEN 12 MG/DL (7-18); CHLORIDE 101 MEQ/L (98-107); GLOMERULAR FILTRATION RATE 100 ML/MIN (>89); POTASSIUM 3.7 MEQ/L (3.5-5.1); SODIUM (NA) 136 MEQ/L (136-145)
[2017-08-01 01:14] LABS: ALKALINE PHOSPHATASE 159 U/L (45-117); TOTAL BILIRUBIN ADULT 0.8 MG/DL (0.2-1.0)
[2017-08-01 01:25] VITALS: BP 141/81; PULSE 68; RESP 18; O2SAT 100
[2017-08-01] MEDS ORDERED: HYDROmorphone HCL PF 1 MG/ML VIAL IV PUSH ONE ×2 (01:30→03:30)
--- NOTE | 2017-08-01 03:03 | RADRPT ---
EXAM DATE/TIME: 08/01/2017 02:06 [facility] COMPARISON: No previous studies available for comparison. INDICATIONS : Right upper quadrant pain. MEDICAL HISTORY : Seizures. Asthma. Pancreatitis. Anxiety. Right upper quadrant pain. SURGICAL HISTORY : Tonsillectomy. ENCOUNTER: Initial ACUITY: 2 days PAIN SCORE: 8/10 LOCATION: Right upper quadrant MEASUREMENTS: LIVER: 17.7 cm length COMMON DUCT: 7 mm RIGHT KIDNEY: 10.6 x 5.9 x 4.5 cm FINDINGS: LIVER: Normal echotexture without focal lesion or ductal dilatation. COMMON DUCT: No intraluminal mass or stone visualized. Upper limits normal for size. GALLBLADDER: Contains no stones, demonstrates no wall thickening or pericholecystic fluid. PANCREAS: The visualized portions are within normal limits. RIGHT KIDNEY: No evidence of hydronephrosis, stone, or mass. CONCLUSION: 1. Common bile duct upper limits normal for size. No gallstones. No hydronephrosis. No free fluid. Clem Walters MD on August 01, 2017 at 3:01 Board Certified Radiologist. This report was verified electronically.
[2017-08-01] MEDS ORDERED: PERC5TAB12 PO (03:17)
[2017-08-01] MEDS ORDERED: ZOFR4TAB3 SL (03:17)
--- NOTE | 2017-08-01 03:17 | PD ---
HPI Chief Complaint: Abdominal Pain Time Seen by Provider: 23:40 Travel History International Travel<30 days: No Contact w/Intl Traveler<30days: No Traveled to known affect area: No History of Present Illness HPI This is a 31-year-old male who has a history of recreational alcohol use who presents to the emergency department with left-sided abdominal pain that's been going on for 2 days, moderate severity, constant, radiating to the back, sharp, associated with decreased appetite. The pain is worse when he eats. It feels like when he had pancreatitis in the past. His pancreatitis has been attributed to alcohol in the past. He denies any fevers or chills. PFSH Past Medical History Asthma: Yes ("GREW OUT OF IT") Anxiety: Yes Cancer: No Cardiovascular Problems: No Cerebrovascular Accident: No Diabetes: No Endocrine: No Gastrointestinal Disorders: Yes (PANCREATITIS) Genitourinary: No Immune Disorder: No Musculoskeletal: No Neurologic: No Psychiatric: Yes (OCD, ANXIETY DISORDER) Reproductive: No Respiratory: Yes (ASTHMA) Immunizations Current: Yes Migraines: No Myocardial Infarction: No Pancreatitis: Yes Seizures: Yes Tetanus Vaccination: < 5 Years Influenza Vaccination: No ?: Not Past Surgical History Abdominal Surgery: No Cardiac Surgery: No Ear Surgery: No Endocrine Surgery: No Eye Surgery: No Genitourinary Surgery: No Gynecologic Surgery: No Oral Surgery: No Thoracic Surgery: No Tonsillectomy: Yes Other Surgery: Yes (TONSILECTOMY) Social History Alcohol Use: Yes (socially) Tobacco Use: Yes (1ppd) Substance Use: No Allergies-Medications (Allergen,Severity, Reaction): Coded Allergies: No Known Allergies (Verified , 07/31/17) Reported Meds & Prescriptions Reported Meds & Active Scripts Active Zofran Odt (Ondansetron Odt) 4 Mg Tab 4 Mg SL Q6HR PRN Percocet (Oxycodone-Acetaminophen) 5-325 mg Tab 1-2 Tab PO Q6H PRN Review of Systems Except as stated in HPI: all other systems reviewed are Neg Physical Exam Narrative GENERAL:Well appearing, no acute distress SKIN: Focused skin assessment warm and dry. HEAD: Atraumatic. Normocephalic. EYES: Pupils equal and round. No injection or drainage. ENT: Moist mucous membranes NECK: Trachea midline. CARDIOVASCULAR: Regular rate and rhythm. No murmur appreciated. RESPIRATORY: Clear to auscultation. Breath sounds equal bilaterally. GASTROINTESTINAL: Abdomen soft, tender to palpation in the epigastrium and left upper quadrant with no rebound or guarding MUSCULOSKELETAL: No obvious deformities. NEUROLOGICAL: Awake and alert. No obvious cranial nerve deficits. Moving all extremities. PSYCHIATRIC: Appropriate mood and affect; insight and judgment normal. Data Data Last Documented VS Vital Signs Date Time Temp Pulse Resp B/P (MAP) Pulse Ox O2 Delivery O2 Flow Rate FiO2 08/01/17 03:45 08/01/17 03:26 75 18 98 Room Air 07/31/17 21:52 98.6 Orders Orders Complete Blood Count With Diff (07/31/17 23:46) Comprehensive Metabolic Panel (07/31/17 23:46) Lipase (07/31/17 23:46) Iv Access Insert/Monitor (07/31/17 23:46) Ecg Monitoring (07/31/17 23:46) Oximetry (07/31/17 23:46) Sodium Chlor 0.9% 1000 Ml Inj (Ns 1000 M (07/31/17 23:46) Sodium Chloride 0.9% Flush (Ns Flush) (08/01/17 00:00) Hydromorphone Pf Inj (Dilaudid Pf Inj) (08/01/17 00:00) Us Abdomen Gallbladder (08/01/17 ) Hydromorphone Pf Inj (Dilaudid Pf Inj) (08/01/17 01:30) Hydromorphone Pf Inj (Dilaudid Pf Inj) (08/01/17 03:30) Labs Laboratory Tests Test 08/01/17 00:01 White Blood Count 6.4 TH/MM3 Red Blood Count 5.12 MIL/MM3 Hemoglobin 15.5 GM/DL Hematocrit 44.8 % Mean Corpuscular Volume 87.6 FL Mean Corpuscular Hemoglobin 30.2 PG Mean Corpuscular Hemoglobin Concent 34.5 % Red Cell Distribution Width 13.7 % Platelet Count 180 TH/MM3 Mean Platelet Volume 7.6 FL Neutrophils (%) (Auto) 65.7 % Lymphocytes (%) (Auto) 22.9 % Monocytes (%) (Auto) 8.1 % Eosinophils (%) (Auto) 3.0 % Basophils (%) (Auto) 0.3 % Neutrophils # (Auto) 4.2 TH/MM3 Lymphocytes # (Auto) 1.5 TH/MM3 Monocytes # (Auto) 0.5 TH/MM3 Eosinophils # (Auto) 0.2 TH/MM3 Basophils # (Auto) 0.0 TH/MM3 CBC Comment DIFF FINAL Differential Comment Blood Urea Nitrogen 12 MG/DL Creatinine 0.90 MG/DL Random Glucose 94 MG/DL Total Protein 7.1 GM/DL Albumin 4.2 GM/DL Calcium Level 8.7 MG/DL Alkaline Phosphatase 159 U/L Aspartate Amino Transf (AST/SGOT) 125 U/L Alanine Aminotransferase (ALT/SGPT) 188 U/L Total Bilirubin 0.8 MG/DL Sodium Level 136 MEQ/L Potassium Level 3.7 MEQ/L Chloride Level 101 MEQ/L Carbon Dioxide Level 26.1 MEQ/L Anion Gap 9 MEQ/L Estimat Glomerular Filtration Rate 100 ML/MIN Lipase 971 U/L MDM Medical Decision Making Medical Screen Exam Complete: Yes Emergency Medical Condition: Yes Interpretation(s) Afebrile, no tachycardia, hypertensive No leukocytosis Electrolytes are reassuring Transaminitis slightly worse from prior Lipase is 971 Ultrasound: Common bile duct is the upper limits of normal, ultrasounds otherwise reassuring Differential Diagnosis Alcoholic pancreatitis, gallstone pancreatitis, necrotizing pancreatitis, gastritis, gastroenteritis, dehydration Narrative Course This is a 31-year-old male who has a history of alcohol use who acknowledges binge drinking alcohol this weekend who presents to the emergency department with left upper quadrant abdominal pain similar to his pancreatitis before. Labs are obtained demonstrating no leukocytosis. He does have a transaminitis which is slightly worse than prior and a slightly elevated alkaline phosphatase. I obtained an ultrasound of the right upper quadrant which was reassuring. His lipase is 900. I did offer the patient observation by a think he can also manage as an outpatient. He appears well-hydrated and he feels improved after several doses of IV pain medication. Patient was advised if he feels worse at home he should return to the emergency department at which time we'll consider admission. Diagnosis Primary Impression: Acute pancreatitis Qualified Codes: K85.20 - Alcohol induced acute pancreatitis without necrosis or infection Patient Instructions: General Instructions Additional Instructions: If you develop severe or worsening abdominal pain, fever>100.4, persistent vomiting or inability to eat or drink return to the emergency department immediately. Follow up with your primary care physician in 1-2 days for a check-up. Med/Other Pt SpecificInfo: Prescription(s) given Scripts Ondansetron Odt (Zofran Odt) 4 Mg Tab 4 MG SL Q6HR Y for Nausea/Vomiting, #15 TAB 0 Refills Prov: Velia Templeton MD 08/01/17 Oxycodone-Acetaminophen (Percocet) 5-325 mg Tab 1-2 TAB PO Q6H Y for PAIN, #15 TAB 0 Refills Prov: Velia Templeton MD 08/01/17 Disposition: 01 DISCHARGE HOME Condition: Stable Velia Templeton MD Aug 01, 2017 03:17
[2017-08-01 03:26] VITALS: BP 125/75; PULSE 75; RESP 18; O2SAT 98
== END 2017-08-01 03:45 | disposition home or self-care (01) ==
LOC: NEPC 21:46
DX: K85.90 Acute pancreatitis without necrosis or infection, unspecified (principal)
CPT/HCPCS: 76705; 80053; 83690; 85025; 96361; 96374; 96376; 99285; J1170; J7030

== ENCOUNTER 2017-09-27 19:35 | Emergency (ER) | payer BC ==
[~2017-09-27] VITALS: Ht 177.8 cm; Wt 105.0 kg
[~2017-09-27 19:35] MED LIST changes: -HYDR-3516 PO; +NORC5TAB PO; +ZOFR4TAB3 SL
[2017-09-27 19:36] VITALS: BP 151/89; PULSE 72; RESP 16; TEMP 98.5; O2SAT 100
[2017-09-27] MEDS ORDERED: SODIUM CHLOR 0.9% 1000 ML INJ 1,000 ML IV SCH (20:51)
[2017-09-27 20:52] VITALS: BP 198/97; PULSE 81; RESP 18; O2SAT 95
--- NOTE | 2017-09-27 20:54 | PD ---
HPI Chief Complaint: Abdominal Pain Time Seen by Provider: 20:47 Travel History International Travel<30 days: No Contact w/Intl Traveler<30days: No Traveled to known affect area: No History of Present Illness HPI 31-year-old male with history of recurrent pancreatitis presents emergency Department with similar symptoms including left-sided epigastric discomfort and cramping and nausea. Patient denies vomiting. He knows he drank too much last evening with his boss due to a recent success at work. Patient then ate a greasy/fatty sandwich approximately 2 hours ago and then developed symptoms. Currently about an 8 out of 10. He is nauseous but has had no vomiting. No diarrhea noted. He denies fever. Patient states she had a similar episode on August 30. Lipase at that time was 1200. He was treated outpatient at that time with Zofran, Lortab, and liquid diet. He has no known drug allergies. PFSH Past Medical History Asthma: Yes ("GREW OUT OF IT") Anxiety: Yes Cancer: No Cardiovascular Problems: No Cerebrovascular Accident: No Diabetes: No Endocrine: No Gastrointestinal Disorders: Yes (PANCREATITIS) Genitourinary: No Headaches: No Immune Disorder: No Implanted Vascular Access Dvce: No Musculoskeletal: No Neurologic: No Psychiatric: Yes (OCD, ANXIETY DISORDER) Reproductive: No Respiratory: Yes (ASTHMA) Immunizations Current: Yes Migraines: No Myocardial Infarction: No Pancreatitis: Yes Seizures: Yes Tetanus Vaccination: < 5 Years Influenza Vaccination: No Past Surgical History Abdominal Surgery: No Cardiac Surgery: No Ear Surgery: No Endocrine Surgery: No Eye Surgery: No Genitourinary Surgery: No Gynecologic Surgery: No Neurologic Surgery: No Oral Surgery: No Thoracic Surgery: No Tonsillectomy: Yes Other Surgery: Yes (TONSILECTOMY) Social History Alcohol Use: Yes (socially) Tobacco Use: Yes Substance Use: No Allergies-Medications (Allergen,Severity, Reaction): Coded Allergies: No Known Allergies (Verified Adverse Reaction, Unknown, 09/27/17) Reported Meds & Prescriptions Reported Meds & Active Scripts Active No Active Prescriptions or Reported Medications Review of Systems Except as stated in HPI: all other systems reviewed are Neg General / Constitutional: No: Fever Eyes: No: Visual changes HENT: No: Headaches Cardiovascular: No: Chest Pain or Discomfort Respiratory: No: Shortness of Breath Gastrointestinal: Positive: Nausea, Abdominal Pain, Loss of Appetite (see history present illness), No: Vomiting, Diarrhea Genitourinary: No: Dysuria Musculoskeletal: No: Pain Skin: No Rash Neurologic: No: Weakness Psychiatric: No: Depression Endocrine: No: Polydipsia Hematologic/Lymphatic: No: Easy Bruising Physical Exam Narrative GENERAL: Patient appears in mild to moderate distress. SKIN: Warm and dry. Normal color. Normal turgor. No significant diaphoresis. HEAD: Atraumatic. Normocephalic. EYES: Pupils equal and round. No scleral icterus. No injection or drainage. ENT: No nasal bleeding or discharge. Mucous membranes pink and moist. NECK: Trachea midline. No JVD. CARDIOVASCULAR: Regular rate and rhythm. RESPIRATORY: No accessory muscle use. Clear to auscultation. Breath sounds equal bilaterally. GASTROINTESTINAL: Abdomen soft, moderate central epigastric tenderness with palpation, nondistended. No guarding or rebound. Mild bilateral CVA tenderness with percussion. Hepatic and splenic margins not palpable. MUSCULOSKELETAL: Extremities without clubbing, cyanosis, or edema. No obvious deformities. NEUROLOGICAL: Awake and alert. No obvious cranial nerve deficits. Motor grossly within normal limits. Five out of 5 muscle strength in the arms and legs. Normal speech. PSYCHIATRIC: Appropriate mood and affect; insight and judgment normal. Data Data Last Documented VS Vital Signs Date Time Temp Pulse Resp B/P (MAP) Pulse Ox O2 Delivery O2 Flow Rate FiO2 09/27/17 20:52 81 18 198/97 (130) 95 Room Air 09/27/17 19:36 98.5 Orders Orders Complete Blood Count With Diff (09/27/17 20:51) Comprehensive Metabolic Panel (09/27/17 20:51) Lipase (09/27/17 20:51) Lactic Acid (09/27/17 20:51) Prothrombin Time / Inr (Pt) (09/27/17 20:51) Act Partial Throm Time (Ptt) (09/27/17 20:51) Urinalysis - C+S If Indicated (09/27/17 20:51) Iv Access Insert/Monitor (09/27/17 20:51) Ecg Monitoring (09/27/17 20:51) Oximetry (09/27/17 20:51) Morphine Inj (Morphine Inj) (09/27/17 21:00) Ondansetron Inj (Zofran Inj) (09/27/17 21:00) Sodium Chlor 0.9% 1000 Ml Inj (Ns 1000 M (09/27/17 20:51) Sodium Chloride 0.9% Flush (Ns Flush) (09/27/17 21:00) Ketorolac Inj (Toradol Inj) (09/27/17 21:00) Famotidine Inj (Pepcid Inj) (09/27/17 22:15) Oxycodone-Acetamin 5-325 Mg (Percocet (09/27/17 22:15) Labs Laboratory Tests Test 09/27/17 20:55 White Blood Count 7.2 TH/MM3 Red Blood Count 4.92 MIL/MM3 Hemoglobin 15.3 GM/DL Hematocrit 42.6 % Mean Corpuscular Volume 86.6 FL Mean Corpuscular Hemoglobin 31.0 PG Mean Corpuscular Hemoglobin Concent 35.8 % Red Cell Distribution Width 13.1 % Platelet Count 181 TH/MM3 Mean Platelet Volume 8.1 FL Neutrophils (%) (Auto) 63.8 % Lymphocytes (%) (Auto) 26.4 % Monocytes (%) (Auto) 7.0 % Eosinophils (%) (Auto) 2.3 % Basophils (%) (Auto) 0.5 % Neutrophils # (Auto) 4.6 TH/MM3 Lymphocytes # (Auto) 1.9 TH/MM3 Monocytes # (Auto) 0.5 TH/MM3 Eosinophils # (Auto) 0.2 TH/MM3 Basophils # (Auto) 0.0 TH/MM3 CBC Comment DIFF FINAL Differential Comment Prothrombin Time 11.2 SEC Prothromb Time International Ratio 1.0 RATIO Activated Partial Thromboplast Time 34.1 SEC Blood Urea Nitrogen 15 MG/DL Creatinine 0.95 MG/DL Random Glucose 90 MG/DL Total Protein 7.6 GM/DL Albumin 4.3 GM/DL Calcium Level 8.7 MG/DL Alkaline Phosphatase 150 U/L Aspartate Amino Transf (AST/SGOT) 115 U/L Alanine Aminotransferase (ALT/SGPT) 156 U/L Total Bilirubin 0.8 MG/DL Sodium Level 137 MEQ/L Potassium Level 3.6 MEQ/L Chloride Level 101 MEQ/L Carbon Dioxide Level 28.0 MEQ/L Anion Gap 8 MEQ/L Estimat Glomerular Filtration Rate 94 ML/MIN Lactic Acid Level 0.7 mmol/L Lipase 543 U/L [facility] Medical Decision Making Medical Screen Exam Complete: Yes Emergency Medical Condition: Yes Medical Record Reviewed: Yes Differential Diagnosis Recurrent pancreatitis. Gastritis. Abdominal pain. Narrative Course Patient is medically stable at time of exam. Labs ordered including CBC, CMP, lipase, lactic acid and coagulations IV access is obtained patient is given 30 mg Toradol IV, 1 mg Zofran IV, milligrams morphine IV, and 1000 mL of normal saline bolus. CBC is unremarkable. Coagulation studies are normal. CMP is unremarkable except for AST of 115, ALT of 156, alkaline phosphatase 150 , and lipase of 543. Lactic acid is 0.7. Patient is given 20 mg Pepcid IV as well as Percocet 5/325 one by mouth now. Patient is felt stable to discharge home, and given Lortab 5/325 one every 6 hours when necessary #12. Patient is to rest and take liquid diet for the next 48 hours as he has done in the past. Recommend patient follow-up with a local medical laboratory scientist as these are recurrent issues. Patient should avoid alcohol at all costs, as well as significantly fatty foods. Patient can return to emergency department if worsening symptoms develop. Diagnosis Primary Impression: Acute pancreatitis Qualified Codes: K85.20 - Alcohol induced acute pancreatitis without necrosis or infection Referrals: Freight Coordinator Patient Instructions: General Instructions, Pancreatitis (DC) Additional Instructions: CBC is unremarkable. Coagulation studies are normal. CMP is unremarkable except for AST of 115, ALT of 156, alkaline phosphatase 150 , and lipase of 543. Lactic acid is 0.7. Patient is given 20 mg Pepcid IV as well as Percocet 5/325 one by mouth now. Patient is felt stable to discharge home, and given Lortab 5/325 one every 6 hours when necessary #12. Patient is to rest and take liquid diet for the next 48 hours as he has done in the past. Recommend patient follow-up with a local medical laboratory scientist as these are recurrent issues. Patient should avoid alcohol at all costs, as well as significantly fatty foods. Patient can return to emergency department if worsening symptoms develop. Med/Other Pt SpecificInfo: Prescription(s) given Scripts No Active Prescriptions or Reported Meds Disposition: DISCHARGE HOME Condition: Stable Eduard Sosa Sep 27, 2017 20:54
[2017-09-27] MEDS ORDERED: ONDANSETRON HCL 4 MG/2 ML VIAL IVP ONE (21:00)
[2017-09-27] MEDS ORDERED: MORPHINE SULFATE 4 MG/ML INJ IV PUSH ONE (21:00)
[2017-09-27] MEDS ORDERED: KETOROLAC TROMETHAMINE 30 MG/ML (IVP) VIAL IVP ONE (21:00)
[2017-09-27] MEDS ORDERED: SODIUM CHLORIDE 0.9% FLUSH 10 ML FLUSH IV FLUSH PRN (21:00)
[2017-09-27 21:29] LABS: AUTOMATED NEUTROPHIL # 4.6 TH/MM3 (1.8-7.7); BASOPHIL % 0.5 % (0.0-2.0); EOSINOPHIL # 0.2 TH/MM3 (0-0.4); EOSINOPHIL % 2.3 % (0.0-4.0); HEMATOCRIT 42.6 % (39.0-51.0); HEMO FLAGS DIFF FINAL; LYMPH % 26.4 % (9.0-44.0); LYMPHOCYTE # 1.9 TH/MM3 (1.0-4.8); MEAN CELL VOLUME 86.6 FL (80.0-100.0); MEAN CORPUSCULAR HGB CONC 35.8 % (32.0-36.0); NEUT % 63.8 % (16.0-70.0); PLATELET COUNT 181 TH/MM3 (150-450); RED BLOOD COUNT 4.92 MIL/MM3 (4.50-5.90); RED CELL DISTRIBUTION WIDTH 13.1 % (11.6-17.2); WHITE BLOOD COUNT 7.2 TH/MM3 (4.0-11.0)
[2017-09-27 21:49] LABS: APTT (PATIENT) 34.1 SEC (24.3-30.1); PROTHROMBIN TIME - PATIENT 11.2 SEC (9.8-11.6)
[2017-09-27 21:50] LABS: ANION GAP 8 MEQ/L (5-15); AST (GOT) 115 U/L (15-37); BLOOD UREA NITROGEN 15 MG/DL (7-18); CHLORIDE 101 MEQ/L (98-107); GLOMERULAR FILTRATION RATE 94 ML/MIN (>89); POTASSIUM 3.6 MEQ/L (3.5-5.1); SODIUM (NA) 137 MEQ/L (136-145)
[2017-09-27 21:51] LABS: ALT (GPT) 156 U/L (12-78)
[2017-09-27 21:53] LABS: ALKALINE PHOSPHATASE 150 U/L (45-117); TOTAL BILIRUBIN ADULT 0.8 MG/DL (0.2-1.0)
[2017-09-27] MEDS ORDERED: HYDR-3516 PO (22:08)
[2017-09-27] MEDS ORDERED: ZOFR4TAB PO (22:09)
[2017-09-27 22:12] VITALS: BP 135/84; PULSE 68; RESP 18; O2SAT 97
[2017-09-27] MEDS ORDERED: FAMOTIDINE 20 MG/2 ML VIAL IV PUSH ONE (22:15)
[2017-09-27] MEDS ORDERED: oxyCODONE/ACETAMINOPHEN 5 MG/325 MG TAB PO ONE (22:15)
[2017-09-28] MEDS ORDERED: ONDANSETRON HCL 4 MG/2 ML VIAL ONE (10:36)
[2017-09-28] MEDS ORDERED: MORPHINE SULFATE 8 MG/ML INJ ONE (10:37)
[2017-09-28] MEDS ORDERED: TRAM50TA PO (12:13)
== END 2017-09-27 22:33 | disposition home or self-care (01) ==
LOC: NEPC 19:35
DX: K85.20 Alcohol induced acute pancreatitis without necrosis or infection (principal); F42.9 Obsessive-compulsive disorder, unspecified; Z72.0 Tobacco use
CPT/HCPCS: 80053; 83605; 83690; 85025; 85610; 85730; 96361; 96374; 96375; 99284; J1885; J2270; J2405; J7030

== ENCOUNTER 2017-09-28 09:33 | Emergency (ER) | payer BC ==
[~2017-09-28] VITALS: Ht 185.4 cm; Wt 103.0 kg
[~2017-09-28 09:33] MED LIST changes: +HYDR-3516 PO; -NORC5TAB PO; +ZOFR4TAB PO; -ZOFR4TAB3 SL
[2017-09-28 09:35] VITALS: BP 166/82; PULSE 72; RESP 14; TEMP 98.2; O2SAT 97
[2017-09-28 09:54] VITALS: BP 176/91; PULSE 70; RESP 20; TEMP 97.9; O2SAT 100
[2017-09-28] MEDS ORDERED: MORPHINE SULFATE 4 MG/ML INJ IV PUSH ONE (10:15)
[2017-09-28] MEDS ORDERED: SODIUM CHLOR 0.9% 1000 ML INJ 1,000 ML IV ONE (10:15)
[2017-09-28] MEDS ORDERED: SODIUM CHLORIDE 0.9% FLUSH 10 ML FLUSH IV FLUSH PRN (10:15)
[2017-09-28] MEDS ORDERED: ONDANSETRON HCL 4 MG/2 ML VIAL IVP ONE (10:15)
--- NOTE | 2017-09-28 10:26 | PD ---
HPI Chief Complaint: Abdominal Pain Time Seen by Provider: 10:04 Travel History International Travel<30 days: No Contact w/Intl Traveler<30days: No Traveled to known affect area: No History of Present Illness HPI This patient complains of abdominal pain. Location is epigastrium. Symptoms are moderately severe. Patient has long-standing history of flares of alcoholic pancreatitis. He was here yesterday for the same thing. Has some nausea. No hemoptysis. No abdominal surgeries. Recent gallbladder ultrasound was normal. Duration 3 days. Symptoms are Partially alleviated by pain medication. Symptoms are exacerbated by alcohol PFSH Past Medical History Asthma: Yes ("GREW OUT OF IT") Anxiety: Yes Cancer: No Cardiovascular Problems: No Cerebrovascular Accident: No Diabetes: No Endocrine: No Gastrointestinal Disorders: Yes (PANCREATITIS) Genitourinary: No Headaches: No Immune Disorder: No Implanted Vascular Access Dvce: No Musculoskeletal: No Neurologic: No Psychiatric: Yes (OCD, ANXIETY DISORDER) Reproductive: No Respiratory: Yes (ASTHMA) Immunizations Current: Yes Migraines: No Myocardial Infarction: No Pancreatitis: Yes Seizures: Yes Influenza Vaccination: No Past Surgical History Abdominal Surgery: No Cardiac Surgery: No Ear Surgery: No Endocrine Surgery: No Eye Surgery: No Genitourinary Surgery: No Gynecologic Surgery: No Neurologic Surgery: No Oral Surgery: No Thoracic Surgery: No Tonsillectomy: Yes Other Surgery: Yes (TONSILECTOMY) Social History Alcohol Use: Yes (RARE) Tobacco Use: Yes Substance Use: No Allergies-Medications (Allergen,Severity, Reaction): Coded Allergies: No Known Allergies (Verified Adverse Reaction, Unknown, 09/28/17) Reported Meds & Prescriptions Reported Meds & Active Scripts Active Tramadol (Tramadol HCl) 50 Mg Tab 50 Mg PO Q6H PRN Zofran (Ondansetron HCl) 4 Mg Tab 4 Mg PO Q6HR PRN Hydrocodone-Acetaminophen 5-325 mg Tab 1 Tab PO Q6H PRN Review of Systems General / Constitutional: No: Fever Eyes: No: Visual changes HENT: No: Headaches Cardiovascular: No: Chest Pain or Discomfort Respiratory: No: Shortness of Breath Gastrointestinal: Positive: Nausea, Abdominal Pain Genitourinary: No: Dysuria Musculoskeletal: No: Pain Skin: No Rash Neurologic: No: Weakness Psychiatric: Positive: Substance Abuse, No: Depression Endocrine: No: Polydipsia Hematologic/Lymphatic: No: Easy Bruising Physical Exam Narrative GENERAL: Well-nourished, well-developed patient with abdominal pain . SKIN: Focused skin assessment reveals no rash and nodules. Skin is Warm and dry. HEAD: Atraumatic. Normocephalic. EYES: Pupils equal and round. No scleral icterus. No injection or drainage. ENT: No nasal bleeding or discharge. Mucous membranes pink and moist. NECK: Trachea midline. No JVD. CARDIOVASCULAR: Regular rate and rhythm. No murmur appreciated. RESPIRATORY: No accessory muscle use. Clear to auscultation. Breath sounds equal bilaterally. GASTROINTESTINAL: Abdomen soft, non-tender, nondistended. Hepatic and splenic margins not palpable. MUSCULOSKELETAL: No obvious deformities. No clubbing. No cyanosis. No edema. NEUROLOGICAL: Awake and alert. No obvious cranial nerve deficits. Motor grossly within normal limits. Normal speech. PSYCHIATRIC: Appropriate mood and affect; insight and judgment normal. Data Data Last Documented VS Vital Signs Date Time Temp Pulse Resp B/P (MAP) Pulse Ox O2 Delivery O2 Flow Rate FiO2 09/28/17 11:56 66 18 145/86 (105) 99 Room Air 09/28/17 09:54 97.9 Orders Orders Iv Access Insert/Monitor (09/28/17 10:12) Ondansetron Inj (Zofran Inj) (09/28/17 10:15) Sodium Chloride 0.9% Flush (Ns Flush) (09/28/17 10:15) Sodium Chlor 0.9% 1000 Ml Inj (Ns 1000 M (09/28/17 10:15) Morphine Inj (Morphine Inj) (09/28/17 10:15) Complete Blood Count With Diff (09/28/17 10:15) Comprehensive Metabolic Panel (09/28/17 10:15) Lipase (09/28/17 10:15) Hydromorphone Pf Inj (Dilaudid Pf Inj) (09/28/17 11:45) Labs Laboratory Tests Test 09/28/17 10:30 White Blood Count 7.8 TH/MM3 Red Blood Count 4.87 MIL/MM3 Hemoglobin 15.0 GM/DL Hematocrit 41.8 % Mean Corpuscular Volume 86.0 FL Mean Corpuscular Hemoglobin 30.9 PG Mean Corpuscular Hemoglobin Concent 35.9 % Red Cell Distribution Width 13.1 % Platelet Count 176 TH/MM3 Mean Platelet Volume 7.8 FL Neutrophils (%) (Auto) 75.6 % Lymphocytes (%) (Auto) 16.1 % Monocytes (%) (Auto) 6.3 % Eosinophils (%) (Auto) 1.8 % Basophils (%) (Auto) 0.2 % Neutrophils # (Auto) 5.9 TH/MM3 Lymphocytes # (Auto) 1.3 TH/MM3 Monocytes # (Auto) 0.5 TH/MM3 Eosinophils # (Auto) 0.1 TH/MM3 Basophils # (Auto) 0.0 TH/MM3 CBC Comment DIFF FINAL Differential Comment Blood Urea Nitrogen 11 MG/DL Creatinine 0.76 MG/DL Random Glucose 117 MG/DL Total Protein 6.9 GM/DL Albumin 4.2 GM/DL Calcium Level 8.5 MG/DL Alkaline Phosphatase 132 U/L Aspartate Amino Transf (AST/SGOT) 106 U/L Alanine Aminotransferase (ALT/SGPT) 148 U/L Total Bilirubin 1.0 MG/DL Sodium Level 133 MEQ/L Potassium Level 3.9 MEQ/L Chloride Level 99 MEQ/L Carbon Dioxide Level 26.1 MEQ/L Anion Gap 8 MEQ/L Estimat Glomerular Filtration Rate 121 ML/MIN Lipase 1845 U/L [facility] Medical Decision Making Medical Screen Exam Complete: Yes Emergency Medical Condition: Yes Medical Record Reviewed: Yes Differential Diagnosis Differential diagnosis includes pancreatitis, biliary colic, hepatitis, GERD, peptic ulcer disease. Narrative Course I have reviewed the patient's electronic medical record. Patient's been here 4 times this year for pancreatitis. He was here yesterday and his labs are reviewed IV placed CBC is normal metabolic profile is normal LFT's show LFTs in the 100 range, same as yesterday lipase is in the 1000 range, increased from yesterday I gave him 1 L normal saline IV and one dose of morphine and Zofran for symptom relief Abdomen is soft and benign and nontender Vital signs are normal I gave him a second pain injection. He is clinically improved. We discussed hospitalization versus outpatient. He does not want to be in the hospital. He's had this many times before and thinks he can do well on clear liquids and gradually advancing diet. I added some tramadol to his regimen to use if needed Advised him to return if he worsens He should avoid alcohol of course Diagnosis Primary Impression: Acute pancreatitis Qualified Codes: K85.20 - Alcohol induced acute pancreatitis without necrosis or infection Additional Instructions: The patient was advised to follow up with their physician and return if they worsen. The patient was warned about potential sedation for the medications they will receive on prescription. Avoid all alcohol Med/Other Pt SpecificInfo: Prescription(s) given Scripts Tramadol (Tramadol) 50 Mg Tab 50 MG PO Q6H Y for PAIN, #20 TAB 0 Refills Prov: Amadou Warren MD 09/28/17 Disposition: 01 DISCHARGE HOME Condition: Stable Amadou aWrren MD Sep 28, 2017 10:26
[2017-09-28 11:08] LABS: AUTOMATED NEUTROPHIL # 5.9 TH/MM3 (1.8-7.7); BASOPHIL % 0.2 % (0.0-2.0); EOSINOPHIL # 0.1 TH/MM3 (0-0.4); EOSINOPHIL % 1.8 % (0.0-4.0); HEMATOCRIT 41.8 % (39.0-51.0); HEMO FLAGS DIFF FINAL; LYMPH % 16.1 % (9.0-44.0); LYMPHOCYTE # 1.3 TH/MM3 (1.0-4.8); MEAN CORPUSCULAR HEMOGLOBIN 30.9 PG (27.0-34.0); MEAN CORPUSCULAR HGB CONC 35.9 % (32.0-36.0); MONO % 6.3 % (0.0-8.0); NEUT % 75.6 % (16.0-70.0); PLATELET COUNT 176 TH/MM3 (150-450); RED BLOOD COUNT 4.87 MIL/MM3 (4.50-5.90); RED CELL DISTRIBUTION WIDTH 13.1 % (11.6-17.2); WHITE BLOOD COUNT 7.8 TH/MM3 (4.0-11.0)
[2017-09-28 11:23] LABS: ALT (GPT) 148 U/L (12-78); ANION GAP 8 MEQ/L (5-15); AST (GOT) 106 U/L (15-37); BICARBONATE 26.1 MEQ/L (21.0-32.0); BLOOD UREA NITROGEN 11 MG/DL (7-18); CHLORIDE 99 MEQ/L (98-107); GLOMERULAR FILTRATION RATE 121 ML/MIN (>89); POTASSIUM 3.9 MEQ/L (3.5-5.1); SODIUM (NA) 133 MEQ/L (136-145)
[2017-09-28 11:27] LABS: ALKALINE PHOSPHATASE 132 U/L (45-117)
[2017-09-28] MEDS ORDERED: HYDROmorphone HCL PF 1 MG/ML VIAL IVS ONE (11:45)
[2017-09-28 11:56] VITALS: BP 145/86; PULSE 66; RESP 18; O2SAT 99
[2017-09-28] MEDS ORDERED: TRAM50TA PO (12:13)
[2017-09-28 12:54] VITALS: BP 145/86
== END 2017-09-28 13:23 | disposition home or self-care (01) ==
LOC: NEPD 09:33
DX: K85.90 Acute pancreatitis without necrosis or infection, unspecified (principal); J45.909 Unspecified asthma, uncomplicated; F41.9 Anxiety disorder, unspecified; F42.9 Obsessive-compulsive disorder, unspecified; R56.9 Unspecified convulsions; Z72.0 Tobacco use
CPT/HCPCS: 80053; 83690; 85025; 96361; 96374; 96375; 99284; J1170; J2270; J2405; J7030

== ENCOUNTER 2018-02-06 07:43 | Observation (INO) | payer BC ==
[~2018-02-06] VITALS: Ht 185.4 cm; Wt 90.0 kg
[~2018-02-06 07:43] MED LIST changes: +TRAM50TA PO
[2018-02-06 07:53] VITALS: BP 146/76; PULSE 73; RESP 20; TEMP 97.6; O2SAT 98
[2018-02-06] MEDS ORDERED: SODIUM CHLOR 0.9% 1000 ML INJ 1,000 ML IV SCH (08:02)
[2018-02-06 08:14] VITALS: BP 163/85; PULSE 61; RESP 20; O2SAT 100
[2018-02-06] MEDS ORDERED: SODIUM CHLORIDE 0.9% FLUSH 10 ML FLUSH IV FLUSH PRN ×2 (08:15→11:45)
[2018-02-06] MEDS ORDERED: ONDANSETRON HCL 4 MG/2 ML VIAL IV ONE (08:15)
[2018-02-06] MEDS ORDERED: HYDROmorphone HCL PF 2 MG/ML VIAL IVS ONE ×2 (08:15→10:15)
--- NOTE | 2018-02-06 08:28 | PD ---
HPI Chief Complaint: Abdominal Pain Time Seen by Provider: 08:00 Travel History International Travel<30 days: No Contact w/Intl Traveler<30days: No Traveled to known affect area: No History of Present Illness HPI 32-year-old man, history of pancreatitis related to alcohol use, here with recurrent episodes of epigastric abdominal pain associate with nausea vomiting starting last night. He otherwise had been feeling well and healthy before this. States he gets symptoms several times a year. Been here multiple times for the same. No fevers. No other complaints. Feels like similar exacerbations in the past. History Past Medical History Narrative Medical Pancreatitis Tetanus Vaccination: < 5 Years Influenza Vaccination: No Social History Alcohol Use: Yes (ONCE EVERY TWO WEEKS) Tobacco Use: Yes (1 PPD) Allergies-Medications (Allergen,Severity, Reaction): Coded Allergies: No Known Allergies (Verified Adverse Reaction, Unknown, 02/06/18) Reported Meds & Prescriptions Reported Meds & Active Scripts Active No Active Prescriptions or Reported Medications Review of Systems Except as stated in HPI: all other systems reviewed are Neg Physical Exam Narrative GENERAL: 32-year-old man, nontoxic. Appears uncomfortable. SKIN: Focused skin assessment warm/dry. HEAD: Atraumatic. Normocephalic. EYES: Pupils equal and round. No scleral icterus. No injection or drainage. ENT: No nasal bleeding or discharge. Mucous membranes pink and moist. NECK: Trachea midline. No JVD. CARDIOVASCULAR: Regular rate and rhythm. No murmur appreciated. RESPIRATORY: No accessory muscle use. Clear to auscultation. Breath sounds equal bilaterally. GASTROINTESTINAL: Abdomen is flat. Soft. Moderate diffuse tenderness. Some voluntary guarding. No rebound. MUSCULOSKELETAL: No obvious deformities. No clubbing. No cyanosis. No edema. NEUROLOGICAL: Awake and alert. No obvious cranial nerve deficits. Motor grossly within normal limits. Normal speech. Data Data Last Documented VS Vital Signs Date Time Temp Pulse Resp B/P (MAP) Pulse Ox O2 Delivery O2 Flow Rate FiO2 02/06/18 08:14 61 20 163/85 (111) 100 Room Air 02/06/18 07:53 97.6 Orders Orders Complete Blood Count With Diff (02/06/18 08:02) Comprehensive Metabolic Panel (02/06/18 08:02) Lipase (02/06/18 08:02) Urinalysis - C+S If Indicated (02/06/18 08:02) Iv Access Insert/Monitor (02/06/18 08:02) Ecg Monitoring (02/06/18 08:02) Oximetry (02/06/18 08:02) NPO (02/06/18 08:02) Sodium Chlor 0.9% 1000 Ml Inj (Ns 1000 M (02/06/18 08:02) Sodium Chloride 0.9% Flush (Ns Flush) (02/06/18 08:15) Ondansetron Inj (Zofran Inj) (02/06/18 08:15) Hydromorphone Pf Inj (Dilaudid Pf Inj) (02/06/18 08:15) Hydromorphone Pf Inj (Dilaudid Pf Inj) (02/06/18 10:15) Admit Order (Ed Use Only) (02/06/18 ) Vital Signs (Adult) Q4H (02/06/18 11:35) Activity Bed Rest (02/06/18 11:35) Place In Observation (02/06/18 ) Vital Signs (Adult) Q4H (02/06/18 11:36) Activity Oob Ad Ginette (02/06/18 11:36) Diet Regular Basic (02/06/18 Lunch) Sodium Chlor 0.9% 1000 Ml Inj (Ns 1000 M (02/06/18 11:36) Sodium Chloride 0.9% Flush (Ns Flush) (02/06/18 11:45) Sodium Chloride 0.9% Flush (Ns Flush) (02/06/18 21:00) Ondansetron Inj (Zofran Inj) (02/06/18 11:45) Comprehensive Metabolic Panel (02/07/18 06:00) Complete Blood Count With Diff (02/07/18 06:00) Lipase (02/07/18 06:00) Enoxaparin Inj (Lovenox Inj) (02/06/18 12:00) Scd Bilateral/Knee High RADHA.BID (02/06/18 11:36) Morphine Inj (Morphine Inj) (02/06/18 11:45) Morphine Inj (Morphine Inj) (02/06/18 11:45) Naloxone Inj (Narcan Inj) (02/06/18 11:45) Magnesium Hydroxide Liq (Milk Of Magnesi (02/06/18 11:45) Labs Laboratory Tests Test 02/06/18 08:15 02/06/18 10:20 White Blood Count 9.3 TH/MM3 Red Blood Count 5.14 MIL/MM3 Hemoglobin 15.8 GM/DL Hematocrit 45.7 % Mean Corpuscular Volume 89.0 FL Mean Corpuscular Hemoglobin 30.8 PG Mean Corpuscular Hemoglobin Concent 34.6 % Red Cell Distribution Width 13.4 % Platelet Count 197 TH/MM3 Mean Platelet Volume 7.9 FL Neutrophils (%) (Auto) 81.5 % Lymphocytes (%) (Auto) 8.9 % Monocytes (%) (Auto) 8.4 % Eosinophils (%) (Auto) 1.0 % Basophils (%) (Auto) 0.2 % Neutrophils # (Auto) 7.6 TH/MM3 Lymphocytes # (Auto) 0.8 TH/MM3 Monocytes # (Auto) 0.8 TH/MM3 Eosinophils # (Auto) 0.1 TH/MM3 Basophils # (Auto) 0.0 TH/MM3 CBC Comment DIFF FINAL Differential Comment Blood Urea Nitrogen 11 MG/DL Creatinine 0.77 MG/DL Random Glucose 106 MG/DL Total Protein 7.9 GM/DL Albumin 4.5 GM/DL Calcium Level 8.8 MG/DL Alkaline Phosphatase 102 U/L Aspartate Amino Transf (AST/SGOT) 238 U/L Alanine Aminotransferase (ALT/SGPT) 369 U/L Total Bilirubin 1.3 MG/DL Sodium Level 130 MEQ/L Potassium Level 4.3 MEQ/L Chloride Level 96 MEQ/L Carbon Dioxide Level 22.6 MEQ/L Anion Gap 11 MEQ/L Estimat Glomerular Filtration Rate 119 ML/MIN Lipase 2275 U/L Urine Color YELLOW Urine Turbidity CLEAR Urine pH 6.0 Urine Specific Lucien 1.035 Urine Protein 30 mg/dL Urine Glucose (UA) NEG mg/dL Urine Ketones 150 mg/dL Urine Occult Blood NEG Urine Nitrite NEG Urine Bilirubin NEG Urine Urobilinogen 2.0 MG/DL Urine Leukocyte Esterase NEG Urine WBC LESS THAN 1 /hpf Urine Mucus FEW /lpf Microscopic Urinalysis Comment CULT NOT INDICATED MDM Medical Decision Making Medical Screen Exam Complete: Yes Emergency Medical Condition: Yes Interpretation(s) LABS: CBC is unremarkable. CMP remarkable for elevated AST ALT total bili, total lipase is 2275 UA is unremarkable Differential Diagnosis Pancreatitis, gastritis, alcohol abuse, other Narrative Course Medical decision making 32-year-old man, history of pancreatitis, here with the same. Looks uncomfortable nontoxic. Moderate diffuse abdominal tenderness. Will check labs , symptomatic treatment. FINAL: Patient with intractable abdominal pain attributed to acute pancreatitis from alcohol. Physician Communication Physician Communication Spoke with Dr. Streeter, will admit patient Diagnosis Primary Impression: Acute pancreatitis Scripts No Active Prescriptions or Reported Meds Lino Lee MD Feb 06, 2018 08:28
[2018-02-06 08:55] LABS: AUTOMATED NEUTROPHIL # 7.6 TH/MM3 (1.8-7.7); BASOPHIL % 0.2 % (0.0-2.0); EOSINOPHIL # 0.1 TH/MM3 (0-0.4); HEMATOCRIT 45.7 % (39.0-51.0); HEMOGLOBIN 15.8 GM/DL (13.0-17.0); LYMPH % 8.9 % (9.0-44.0); LYMPHOCYTE # 0.8 TH/MM3 (1.0-4.8); MEAN CORPUSCULAR HEMOGLOBIN 30.8 PG (27.0-34.0); MEAN CORPUSCULAR HGB CONC 34.6 % (32.0-36.0); MEAN PLATELET VOLUME 7.9 FL (7.0-11.0); MONO % 8.4 % (0.0-8.0); MONOCYTE # 0.8 TH/MM3 (0-0.9); NEUT % 81.5 % (16.0-70.0); PLATELET COUNT 197 TH/MM3 (150-450); RED BLOOD COUNT 5.14 MIL/MM3 (4.50-5.90); RED CELL DISTRIBUTION WIDTH 13.4 % (11.6-17.2); WHITE BLOOD COUNT 9.3 TH/MM3 (4.0-11.0)
[2018-02-06 09:17] LABS: ALT (GPT) 369 U/L (12-78)
[2018-02-06 09:21] LABS: ALKALINE PHOSPHATASE 102 U/L (45-117); TOTAL BILIRUBIN ADULT 1.3 MG/DL (0.2-1.0); TOTAL PROTEIN 7.9 GM/DL (6.4-8.2)
[2018-02-06 09:30] LABS: ALBUMIN 4.5 GM/DL (3.4-5.0); AST (GOT) 238 U/L (15-37); BICARBONATE 22.6 MEQ/L (21.0-32.0); BLOOD UREA NITROGEN 11 MG/DL (7-18); CALCIUM 8.8 MG/DL (8.5-10.1); CHLORIDE 96 MEQ/L (98-107); CREATININE 0.77 MG/DL (0.60-1.30); GLOMERULAR FILTRATION RATE 119 ML/MIN (>89); GLUCOSE,RANDOM 106 MG/DL (74-106); SODIUM (NA) 130 MEQ/L (136-145)
[2018-02-06 10:56] LABS: BLOOD, URINE NEG (NEG); GLUCOSE,URINE NEG (NEG); KETONE, URINE 150 mg/dL (NEG); MUCUS URINE FEW /lpf (OCC); NITRITE,URINE NEG (NEG); URINE COLOR YELLOW (YELLW/STRAW); URINE LEUKOCYTE ESTERASE NEG (NEG)
[2018-02-06 10:59] LABS: BILIRUBIN, URINE NEG (NEG)
[2018-02-06] MEDS ORDERED: NALOXONE HCL 0.4 MG/ML AMP IV PUSH PRN (11:45)
[2018-02-06] MEDS ORDERED: MORPHINE SULFATE 2 MG/ML SYRINGE IV PUSH PRN ×2 (11:45)
[2018-02-06] MEDS ORDERED: ONDANSETRON HCL 4 MG/2 ML VIAL IVP PRN (11:45)
[2018-02-06] MEDS ORDERED: MAGNESIUM HYDROXIDE SUSP 30 ML CUP PO PRN (11:45)
[2018-02-06] MEDS: ENOXAPARIN SODIUM 40 MG/0.4 ML SYRINGE SQ SCH (12:00)
[2018-02-06] MEDS ORDERED: NICOTINE 21 MG/24 HR PATCH T-DERMAL ONE (12:45)
[2018-02-06] MEDS ORDERED: HYDROmorphone HCL PF 1 MG/ML VIAL IV PUSH PRN ×2 (12:45)
[2018-02-06] MEDS: SODIUM CHLOR 0.9% 1000 ML INJ 1,000 ML IV SCH (12:49)
[2018-02-06 13:00] VITALS: BP 169/89; PULSE 56; RESP 20; O2SAT 99
--- NOTE | 2018-02-06 13:00 | HHI.HP ---
[facility] No Primary Care Physician Admission Diagnosis Acute pancreatitis Diagnoses: Travel History International Travel<30 Days: No Contact w/Intl Traveler <30 Da: No Traveled to Known Affected Are: No History of Present Illness Mr. Pichardo is a 32 year old male. He has two prior episodes of pancreatitis. He used to drink heavily when he was younger and his first episode of pancreatitis was most severe. 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 Pain started shortly after alcohol ingestion and has not improved to time. He complains of severe pain, chills, and sweats. He has no underlying medical history other than these previous pink otitis episodes. No other complaints at this time. Review of Systems Constitutional: COMPLAINS OF: Diaphoretic episodes, Chills, DENIES: Fever Eyes: DENIES: Blurred vision, Diplopia, Eye inflammation, Eye pain Ears, nose, mouth, throat: DENIES: Tinnitus, Hearing loss, Vertigo Respiratory: DENIES: Apneas, Cough, Snoring, Wheezing Cardiovascular: DENIES: Chest pain, Palpitations, Syncope, Dyspnea on Exertion Gastrointestinal: COMPLAINS OF: Abdominal pain, DENIES: Black stools, Bloody stools Musculoskeletal: DENIES: Joint pain, Muscle aches, Stiffness, Joint Swelling Integumentary: DENIES: Abnormal pigmentation, Nail changes, Pruritus, Rash Hematologic/lymphatic: DENIES: Bruising, Lymphadenopathy Immunologic/allergic: DENIES: Eczema, Urticaria Neurologic: DENIES: Abnormal gait, Headache, Paresthesias Psychiatric: DENIES: Anxiety, Confusion, Hallucinations Past Family Social History Past Medical History Pancreatitis Past Surgical History Tonsillectomy Adenoidectomy Reported Medications Reported Meds & Active Scripts Active No Active Prescriptions or Reported Medications None Allergies: Coded Allergies: No Known Allergies (Verified Adverse Reaction, Unknown, 02/06/18) Family History Pancreatitis and grandmother Polycystic kidney disease in other relatives Social History Occasional alcohol use Patient smokes 1 pack per day No illicit drug abuse Physical Exam Vital Signs Vital Signs Date Time Temp Pulse Resp B/P (MAP) Pulse Ox O2 Delivery O2 Flow Rate FiO2 02/06/18 08:14 61 20 163/85 (111) 100 Room Air 02/06/18 08:13 20 02/06/18 07:53 97.6 73 20 146/76 (99) 98 Physical Exam GENERAL: NAD, A&Ox3 HEAD: Normocephalic. NECK: Supple, trachea midline. No lymphadenopathy. EYES: No scleral icterus. No injection or drainage. CARDIOVASCULAR: Regular rate and rhythm without murmurs, gallops, or rubs. RESPIRATORY: Breath sounds equal bilaterally. No accessory muscle use. GASTROINTESTINAL: Abdomen soft, non-tender, nondistended. MUSCULOSKELETAL: No cyanosis, or edema. SKIN: Warm and dry. NEURO: No focal neurological deficitis. Laboratory Laboratory Tests Test 02/06/18 08:15 02/06/18 10:20 White Blood Count 9.3 Red Blood Count 5.14 Hemoglobin 15.8 Hematocrit 45.7 Mean Corpuscular Volume 89.0 Mean Corpuscular Hemoglobin 30.8 Mean Corpuscular Hemoglobin Concent 34.6 Red Cell Distribution Width 13.4 Platelet Count 197 Mean Platelet Volume 7.9 Neutrophils (%) (Auto) 81.5 Lymphocytes (%) (Auto) 8.9 Monocytes (%) (Auto) 8.4 Eosinophils (%) (Auto) 1.0 Basophils (%) (Auto) 0.2 Neutrophils # (Auto) 7.6 Lymphocytes # (Auto) 0.8 Monocytes # (Auto) 0.8 Eosinophils # (Auto) 0.1 Basophils # (Auto) 0.0 CBC Comment DIFF FINAL Differential Comment Blood Urea Nitrogen 11 Creatinine 0.77 Random Glucose 106 Total Protein 7.9 Albumin 4.5 Calcium Level 8.8 Alkaline Phosphatase 102 Aspartate Amino Transf (AST/SGOT) 238 Alanine Aminotransferase (ALT/SGPT) 369 Total Bilirubin 1.3 Sodium Level 130 Potassium Level 4.3 Chloride Level 96 Carbon Dioxide Level 22.6 Anion Gap 11 Estimat Glomerular Filtration Rate 119 Lipase 2275 Urine Color YELLOW Urine Turbidity CLEAR Urine pH 6.0 Urine Specific Terral 1.035 Urine Protein 30 Urine Glucose (UA) NEG Urine Ketones 150 Urine Occult Blood NEG Urine Nitrite NEG Urine Bilirubin NEG Urine Urobilinogen 2.0 Urine Leukocyte Esterase NEG Urine WBC LESS THAN 1 Urine Mucus FEW Microscopic Urinalysis Comment CULT NOT INDICATED Result Diagram: 02/06/1881402/06/18814 Caprini VTE Risk Assessment Caprini VTE Risk Assessment: No/Low Risk (score <= 1) Caprini Risk Assessment Model Point Value = 1 Point Value = 2 Point Value = 3 Point Value = 5 Age 41-60 Minor surgery BMI > 25 kg/m2 Swollen legs Varicose veins or History of unexplained or recurrent spontaneous Oral contraceptives or hormone replacement Sepsis (< 1 month) Serious lung disease, including pneumonia (< 1 month) Abnormal pulmonary function Acute myocardial infarction Congestive heart failure (< 1 month) History of inflammatory bowel disease Medical patient at bed rest Age 61-74 Arthroscopic surgery Major open surgery (> 45 min) Laparoscopic surgery (> 45 min) Malignancy Confined to bed (> 72 hours) Immobilizing plaster cast Central venous access Age >= 75 History of VTE Family history of VTE Factor V Leiden Prothrombin [id number] Lupus anticoagulant Anticardiolipin antibodies Elevated serum homocysteine Heparin-induced thrombocytopenia Other congenital or acquired thrombophilia Stroke (< 1 month) Elective arthroplasty Hip, pelvis, or leg fracture Acute spinal cord injury (< 1 month) Prophylaxis Regimen Total Risk Factor Score Risk Level Prophylaxis Regimen 0-1 Low Early ambulation 2 Moderate Order ONE of the following: *Sequential Compression Device (SCD) *Heparin 5000 units SQ BID 3-4 Higher Order ONE of the following medications: *Heparin 5000 units SQ TID *Enoxaparin/Lovenox 40 mg SQ daily (WT < 150 kg, CrCl > 30 mL/min) *Enoxaparin/Lovenox 30 mg SQ daily (WT < 150 kg, CrCl > 10-29 mL/min) *Enoxaparin/Lovenox 30 mg SQ BID (WT < 150 kg, CrCl > 30 mL/min) AND/OR *Sequential Compression Device (SCD) 5 or more Highest Order ONE of the following medications: *Heparin 5000 units SQ TID (Preferred with Epidurals) *Enoxaparin/Lovenox 40 mg SQ daily (WT < 150 kg, CrCl > 30 mL/min) *Enoxaparin/Lovenox 30 mg SQ daily (WT < 150 kg, CrCl > 10-29 mL/min) *Enoxaparin/Lovenox 30 mg SQ BID (WT < 150 kg, CrCl > 30 mL/min) AND *Sequential Compression Device (SCD) Assessment and Plan Problem List: (1) Acute pancreatitis ICD Code: K85.90 - Acute pancreatitis without necrosis or infection, unspecified Status: Acute Assessment and Plan 32-year-old male admitted secondary to acute pancreatitis Acute pancreatitis recurrent pancreatitis This appears to be alcohol-related, the amount of alcohol is low volume IV hydration IV pain control Low-fat diet Follow lipase Monitor for improvement in symptoms Consider discharge when lipase begins to drop, potentially tomorrow morning Patient counseled to avoid all alcohol in the future Nicotine dependence NicoDerm Patient counseled to quit smoking DVT prophylaxis Lovenox, SCDs Jaime Streeter MD Feb 06, 2018 13:00
[2018-02-06] MEDS: HYDROmorphone HCL PF 2 MG/ML VIAL IV PUSH PRN ×2 (15:20→20:02)
[2018-02-06 20:00] VITALS: BP 174/83; PULSE 75; RESP 18; TEMP 98.4; O2SAT 100
[2018-02-06] MEDS: SODIUM CHLORIDE 0.9% FLUSH 10 ML FLUSH IV FLUSH SCH (20:02)
[2018-02-07] VITALS (7 sets, daily range): BP systolic 114–150; BP diastolic 63–91; PULSE 77–88; RESP 16–19; TEMP 97.5–99.7; O2SAT 96–100
[2018-02-07] MEDS: HYDROmorphone HCL PF 2 MG/ML VIAL IV PUSH PRN ×6 (00:07→21:55)
[2018-02-07] MEDS: SODIUM CHLOR 0.9% 1000 ML INJ 1,000 ML IV SCH ×5 (02:19→22:04)
[2018-02-07 06:11] LABS: AUTOMATED NEUTROPHIL # 6.7 TH/MM3 (1.8-7.7); EOSINOPHIL # 0.1 TH/MM3 (0-0.4); EOSINOPHIL % 0.7 % (0.0-4.0); HEMATOCRIT 43.1 % (39.0-51.0); LYMPH % 9.3 % (9.0-44.0); LYMPHOCYTE # 0.8 TH/MM3 (1.0-4.8); MEAN CELL VOLUME 88.9 FL (80.0-100.0); MEAN CORPUSCULAR HEMOGLOBIN 30.9 PG (27.0-34.0); MEAN CORPUSCULAR HGB CONC 34.8 % (32.0-36.0); MEAN PLATELET VOLUME 8.1 FL (7.0-11.0); MONO % 10.6 % (0.0-8.0); MONOCYTE # 0.9 TH/MM3 (0-0.9); NEUT % 79.4 % (16.0-70.0); PLATELET COUNT 167 TH/MM3 (150-450); RED BLOOD COUNT 4.85 MIL/MM3 (4.50-5.90); RED CELL DISTRIBUTION WIDTH 13.4 % (11.6-17.2); WHITE BLOOD COUNT 8.4 TH/MM3 (4.0-11.0)
[2018-02-07 06:38] LABS: ALBUMIN 3.7 GM/DL (3.4-5.0); AST (GOT) 115 U/L (15-37); BICARBONATE 21.7 MEQ/L (21.0-32.0); BLOOD UREA NITROGEN 7 MG/DL (7-18); CALCIUM 8.5 MG/DL (8.5-10.1); CHLORIDE 101 MEQ/L (98-107); CREATININE 0.64 MG/DL (0.60-1.30); GLOMERULAR FILTRATION RATE 147 ML/MIN (>89); GLUCOSE,RANDOM 107 MG/DL (74-106); SODIUM (NA) 135 MEQ/L (136-145)
[2018-02-07 06:39] LABS: ALKALINE PHOSPHATASE 82 U/L (45-117); ALT (GPT) 243 U/L (12-78); TOTAL BILIRUBIN ADULT 0.8 MG/DL (0.2-1.0)
[2018-02-07] MEDS: SODIUM CHLORIDE 0.9% FLUSH 10 ML FLUSH IV FLUSH SCH ×2 (09:00→21:56)
[2018-02-07] MEDS ORDERED: REMOVE OLD PATCH T-DERMAL SCH (09:00)
[2018-02-07] MEDS: NICOTINE 21 MG/24 HR PATCH T-DERMAL SCH (09:06)
[2018-02-07] MEDS: ENOXAPARIN SODIUM 40 MG/0.4 ML SYRINGE SQ SCH (13:07)
--- NOTE | 2018-02-07 15:29 | HHI.PR ---
Subjective Remarks c/o epigastric pain Objective Vitals Vital Signs Date Time Temp Pulse Resp B/P (MAP) Pulse Ox O2 Delivery O2 Flow Rate FiO2 02/07/18 11:59 98.8 78 17 138/77 (97) 97 02/07/18 08:00 98.9 79 16 114/63 (80) 100 02/07/18 04:00 99.7 77 18 146/81 (102) 97 02/07/18 00:20 97.5 81 18 136/81 (99) 100 02/06/18 20:00 98.4 75 18 174/83 (113) 100 I/O 02/06/18 02/06/18 02/06/18 02/07/18 02/07/18 02/07/18 07:00 15:00 23:00 07:00 15:00 23:00 Intake Total 1000 ml Output Total 900 ml Balance 1000 ml -900 ml Intake IV Total 1000 ml Output Urine Total 900 ml Result Diagram: 02/07/18 0515 02/07/18514 Objective Remarks AAOx3 clear lungs BL + abdominal pain, soft, BS+ no edema in extremities A/P Problem List: (1) Acute pancreatitis ICD Code: K85.90 - Acute pancreatitis without necrosis or infection, unspecified Status: Acute Assessment and Plan 32-year-old male admitted secondary to acute pancreatitis Acute pancreatitis recurrent pancreatitis This appears to be alcohol-related, the amount of alcohol is low volume IV hydration IV pain control Low-fat diet Follow lipase Monitor for improvement in symptoms Consider discharge when lipase begins to drop, potentially tomorrow morning Patient counseled to avoid all alcohol in the future 02/[address] Will [address] patient on clears. monitor lipase. Nicotine dependence NicoDerm Patient counseled to quit smoking DVT prophylaxis Lovenox, SCDs Artemio Lilly MD Feb 07, 2018 15:29
[2018-02-08 03:40] VITALS: BP 136/82; PULSE 74; RESP 18; TEMP 98.6; O2SAT 96
[2018-02-08] MEDS: HYDROmorphone HCL PF 2 MG/ML VIAL IV PUSH PRN ×2 (04:07→10:33)
[2018-02-08 07:36] VITALS: BP 134/80; PULSE 70; RESP 16; TEMP 98.8; O2SAT 96
[2018-02-08 10:13] LABS: ALBUMIN 3.4 GM/DL (3.4-5.0); AST (GOT) 108 U/L (15-37); BICARBONATE 25.5 MEQ/L (21.0-32.0); BLOOD UREA NITROGEN 9 MG/DL (7-18); CALCIUM 8.3 MG/DL (8.5-10.1); CHLORIDE 104 MEQ/L (98-107); CREATININE 0.66 MG/DL (0.60-1.30); GLOMERULAR FILTRATION RATE 142 ML/MIN (>89); GLUCOSE,RANDOM 104 MG/DL (74-106); SODIUM (NA) 140 MEQ/L (136-145)
[2018-02-08 10:16] LABS: ALKALINE PHOSPHATASE 85 U/L (45-117); ALT (GPT) 194 U/L (12-78); TOTAL BILIRUBIN ADULT 0.8 MG/DL (0.2-1.0); TOTAL PROTEIN 6.8 GM/DL (6.4-8.2)
[2018-02-08] MEDS: SODIUM CHLOR 0.9% 1000 ML INJ 1,000 ML IV SCH (10:26)
[2018-02-08] MEDS: SODIUM CHLORIDE 0.9% FLUSH 10 ML FLUSH IV FLUSH SCH (10:31)
[2018-02-08] MEDS: NICOTINE 21 MG/24 HR PATCH T-DERMAL SCH (10:32)
--- NOTE | 2018-02-08 11:37 | HHI.PR ---
Subjective Remarks Patient still with abdominal pain Mild nausea Denies vomiting - epigastric Afebrile Denies cp/sob Objective Vitals Vital Signs Date Time Temp Pulse Resp B/P (MAP) Pulse Ox O2 Delivery O2 Flow Rate FiO2 02/08/18 07:36 98.8 70 16 134/80 (98) 96 02/08/18 03:40 98.6 74 18 136/82 (100) 96 02/07/18 23:15 99.1 81 18 138/84 (102) 96 02/07/18 22:08 98.2 85 18 130/88 (102) 97 02/07/18 16:00 98.6 88 19 150/91 (110) 99 02/07/18 11:59 98.8 78 17 138/77 (97) 97 I/O 02/07/18 02/07/18 02/07/18 02/08/18 02/08/18 02/08/18 07:00 15:00 23:00 07:00 15:00 23:00 Intake Total 480 ml Output Total 900 ml 1800 ml Balance -900 ml -1320 ml Intake Oral 480 ml Output Urine Total 900 ml 1800 ml Result Diagram: 02/07/18 0515 02/08/18 0930 Objective Remarks AAOx3 clear lungs BL + abdominal pain, soft, BS+ no edema in extremities Procedures none Medications and IVs Current Medications Medications (Trade) Dose Ordered Sig/Jarrod Route Start Time Stop Time Status Last Admin Sodium Chloride 1,000 ml @ 125 mls/hr Q8H IV 02/06/18 11:36 02/08/18 10:26 (NS Flush) 2 ml UNSCH PRN IV FLUSH 02/06/18 11:45 (NS Flush) 2 ml BID IV FLUSH 02/06/18 21:00 02/08/18 10:31 (Zofran Inj) 4 mg Q6H PRN IVP 02/06/18 11:45 (Lovenox Inj) 40 mg Q24H SQ 02/06/18 12:00 02/07/18 13:07 (Narcan Inj) 0.4 mg UNSCH PRN IV PUSH 02/06/18 11:45 (Milk Of Magnesia Liq) 30 ml Q12H PRN PO 02/06/18 11:45 (Habitrol 21 Mg Patch.24 Hr) 1 patch DAILY T-DERMAL 02/07/18 09:00 02/08/18 10:32 Miscellaneous Information 1 DAILY T-DERMAL 02/07/18 09:00 02/07/18 09:00 (Dilaudid Pf Inj) 0.5 mg Q4H PRN IV PUSH 02/06/18 15:15 02/08/18 10:33 (Dilaudid Pf Inj) 1 mg Q4H PRN IV PUSH 02/06/18 15:15 02/07/18 17:13 A/P Problem List: (1) Acute pancreatitis ICD Code: K85.90 - Acute pancreatitis without necrosis or infection, unspecified Status: Acute (2) Abdominal pain ICD Code: R10.9 - Unspecified abdominal pain Assessment and Plan 32-year-old male admitted secondary to acute pancreatitis Acute pancreatitis recurrent pancreatitis This appears to be alcohol-related, the amount of alcohol is low volume IV hydration IV pain control Low-fat diet Follow lipase Monitor for improvement in symptoms Consider discharge when lipase begins to drop, potentially tomorrow morning Patient counseled to avoid all alcohol in the future 02/[address] patient on clears. monitor lipase. 02/08 Lipase back to normal - advance diet top regular. If tolerate diet then will DC. Nicotine dependence NicoDerm Patient counseled to quit smoking DVT prophylaxis Raffaele, SCDs Artemio Lilly MD Feb 08, 2018 11:37
[2018-02-08] MEDS ORDERED: OXYC1CAP PO ×2 (11:45→16:23)
--- NOTE | 2018-02-08 11:46 | HHI.DCPOC ---
Discharge Care Plan Diagnosis: (1) Acute pancreatitis Goals to Promote Your Health * To prevent worsening of your condition and complications * To maintain your health at the optimal level Directions to Meet Your Goals Take your medications as prescribed Follow your dietary instruction Follow activity as directed Keep your appointments as scheduled Take your immunizations and boosters as scheduled If your symptoms worsen call your PCP, if no PCP go to Urgent Care Center or Emergency Room Smoking is Dangerous to Your Health. Avoid second hand smoke Call the 24-hour hour crisis hotline for domestic abuse at Artemio Lilly MD Feb 08, 2018 11:46
[2018-02-08 11:49] LABS: CHOLESTEROL/ HDL RATIO 2.63 RATIO; HDL CHOLESTEROL 64.8 MG/DL (40.0-60.0)
--- NOTE | 2018-02-08 11:51 | HHI.DS ---
Discharge Summary Admission Date Feb 06, 2018 at 11:38 Discharge Date: Feb 08, 2018 Admitting Diagnosis Acute pancreatitis (1) Acute pancreatitis ICD Code: K85.90 - Acute pancreatitis without necrosis or infection, unspecified Diagnosis: Principal Status: Acute (2) Abdominal pain ICD Code: R10.9 - Unspecified abdominal pain Diagnosis: Principal Status: Resolved Procedures none Brief History - From Admission Mr. Pichardo is a 32 year old male. He has two prior episodes of pancreatitis. He used to drink heavily when he was younger and his first episode of pancreatitis was most severe. 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 Pain started shortly after alcohol ingestion and has not improved to time. He complains of severe pain, chills, and sweats. He has no underlying medical history other than these previous pink otitis episodes. No other complaints at this time. CBC/BMP: 02/07/18 0515 02/08/18 0930 Significant Findings Laboratory Tests Test 02/06/18 08:15 02/06/18 10:20 02/07/18 05:15 02/08/18 09:30 Neutrophils (%) (Auto) 81.5 % (16.0-70.0) 79.4 % (16.0-70.0) Lymphocytes (%) (Auto) 8.9 % (9.0-44.0) Monocytes (%) (Auto) 8.4 % (0.0-8.0) 10.6 % (0.0-8.0) Lymphocytes # (Auto) 0.8 TH/MM3 (1.0-4.8) 0.8 TH/MM3 (1.0-4.8) Aspartate Amino Transf (AST/SGOT) 238 U/L (15-37) 115 U/L (15-37) 108 U/L (15-37) Alanine Aminotransferase (ALT/SGPT) 369 U/L (12-78) 243 U/L (12-78) 194 U/L (12-78) Total Bilirubin 1.3 MG/DL (0.2-1.0) Sodium Level 130 MEQ/L (136-145) 135 MEQ/L (136-145) Chloride Level 96 MEQ/L (98-107) Lipase 2275 U/L (73-393) 6903 U/L (73-393) Urine Protein 30 mg/dL (NEG-TRACE) Urine Ketones 150 mg/dL (NEG) Urine Mucus FEW /lpf (OCC) Random Glucose 107 MG/DL (74-106) Calcium Level 8.3 MG/DL (8.5-10.1) HDL Cholesterol 64.8 MG/DL (40.0-60.0) PE at Discharge AAOx3 clear lungs BL + abdominal pain, soft, BS+ no edema in extremities Pt Condition on Discharge: Good Discharge Disposition: Discharge Home Discharge Instructions DIET: Follow Instructions for: As Tolerated, No Restrictions Activities you can perform: Regular-No Restrictions Artemio Lilly MD Feb 08, 2018 11:51
[2018-02-08 12:24] VITALS: BP 151/88; PULSE 82; RESP 16; TEMP 98.8; O2SAT 98
[2018-02-08] MEDS ORDERED: OXYC-392 PO (16:34)
== END 2018-02-08 14:46 | disposition home or self-care (01) ==
LOC: NEPE 07:43 → NEDA 11:38 → NEPGCP 18:02
PROVIDERS: ADMIT Hospitalist; ATTEND Hospitalist
DX: K85.20 Alcohol induced acute pancreatitis without necrosis or infection (principal); K86.1 Other chronic pancreatitis; R11.2 Nausea with vomiting, unspecified; F17.210 Nicotine dependence, cigarettes, uncomplicated
CPT/HCPCS: 80053; 80061; 81001; 83690; 85025; 96361; 96374; 96375; 96376; 99285; G0378; J1170; J1650; J2405; J7030